=== PATIENT | female | born 1935 | race Caucasian/White ===

== ENCOUNTER 2022-08-28 10:37 | Outpatient (REF) | payer MEDICARE, SELFPAY ==
[2022-08-28 11:06] LABS: MANUAL DIFF FLAG NO
[2022-08-28 11:44] LABS: Basophils Percent Auto 0.8 % (0-2); Eosinophils Absolute Auto 0.1 X10*3/uL (0.0-0.4); Eosinophils Percent Auto 2.5 % (0-4); Hematocrit 40.7 % (37.0-47.0); Hemoglobin 13.7 g/dl (12.0-16.0); Imm Gran Abs Auto 0.01 X10*3/uL (0.00-0.03); Imm Gran Pct Auto 0.2 % (0.0-0.4); Lymphocytes Absolute Auto 0.9 X10*3/uL (1.2-4.9); Lymphocytes Percent Auto 17.9 % (20-40); Mean Corpuscular HGB Conc 33.7 g/dl (31.0-35.0); Mean Corpuscular Hemoglobin 30.6 pg (27.0-33.0); Mean Corpuscular Volume 91.1 fL (80.0-98.0); Mean Platelet Volume 10.1 fL (9.4-12.3); Monocytes Absolute Auto 0.5 X10*3/uL (0.1-1.2); Monocytes Percent Auto 9.8 % (2-11); Neutrophils Absolute Auto 3.6 x10*3/uL (2.0-8.3); Neutrophils Percent Auto 68.8 % (45-73); Platelet Count 221 X10*3/uL (160-400); Red Blood Count 4.47 X10*6/uL (4.20-5.50); Red Cell Distribution Width 13.3 % (11.0-16.0); White Blood Count 5.2 X10*3/uL (4.8-10.8)
[2022-08-28 13:04] LABS: Alanine Aminotransferase 14 U/L (0-31); Albumin Level 4.2 g/dL (3.5-5.0); Alkaline Phosphatase 64 U/L (39-117); Anion Gap 10 (12-20); Aspartate Amino Transferase 18 U/L (5-31); Bilirubin Total 0.9 mg/dL (0.0-1.0); Blood Urea Nitrogen 9 mg/dL (9-16); Calcium 9.6 mg/dL (8.4-10.2); Carbon Dioxide 29 mmol/L (22-29); Chloride 102 mmol/L (96-108); Cholesterol 217 mg/dL; Estimated Glomerular Filt Rate > 60; Glucose Fasting 97 mg/dL (60-99); HDL Cholesterol 93 mg/dL; LDL Cholesterol Calculated 115 mg/dl; Potassium 4.8 mmol/L (3.3-5.1); Sodium 136 mmol/L (135-145); Total Protein 6.8 g/dL (6.5-8.0); Triglycerides 46 mg/dL
[2022-08-28 13:29] LABS: Vitamin D 25-OH Total 23.5 ng/mL (>30)
== END 2022-08-28 10:38 | disposition home or self-care (01) ==
LOC: HO.LAB 10:37
PROVIDERS: PCP Internal Medicine; Visit Provider Internal Medicine
DX: M81.0 Age-related osteoporosis without current pathological fracture (principal); E78.00 Pure hypercholesterolemia, unspecified; I11.0 Hypertensive heart disease with heart failure; I50.9 Heart failure, unspecified
CPT/HCPCS: 36415; 80053; 80061; 82306; 85025

== ENCOUNTER 2022-09-14 12:21 | Outpatient (REF) | payer MEDICARE, SELFPAY ==
[2022-09-14 14:02] LABS: B Type Natriuretic Peptide 44 pg/mL (<100)
[2022-09-14 14:21] LABS: Anion Gap 15 (12-20); Blood Urea Nitrogen 11 mg/dL (9-16); Calcium 9.7 mg/dL (8.4-10.2); Carbon Dioxide 26 mmol/L (22-29); Chloride 99 mmol/L (96-108); Estimated Glomerular Filt Rate > 60; Glucose Random 86 mg/dL (60-115); Potassium 4.7 mmol/L (3.3-5.1); Sodium 135 mmol/L (135-145)
== END 2022-09-14 12:22 | disposition home or self-care (01) ==
LOC: HO.LAB 12:21
PROVIDERS: PCP Internal Medicine; Visit Provider Internal Medicine Cardiovascular Disease
DX: I10 Essential (primary) hypertension (principal)
CPT/HCPCS: 36415; 80048; 83880

== ENCOUNTER 2023-10-01 15:31 | Outpatient (REF) | payer MEDICARE, SELFPAY ==
[2023-10-01 15:52] LABS: MANUAL DIFF FLAG NO
[2023-10-01 17:10] LABS: Basophils Absolute Auto 0.1 X10*3/uL (0.0-0.2); Basophils Percent Auto 0.9 % (0-2); Eosinophils Absolute Auto 0.1 X10*3/uL (0.0-0.4); Eosinophils Percent Auto 1.6 % (0-4); Hemoglobin 13.1 g/dl (12.0-16.0); Imm Gran Abs Auto 0.02 X10*3/uL (0.00-0.03); Imm Gran Pct Auto 0.4 % (0.0-0.4); Lymphocytes Absolute Auto 1.1 X10*3/uL (1.2-4.9); Lymphocytes Percent Auto 20.2 % (20-40); Mean Corpuscular HGB Conc 33.6 g/dl (31.0-35.0); Mean Corpuscular Volume 92.4 fL (80.0-98.0); Monocytes Absolute Auto 0.5 X10*3/uL (0.1-1.2); Monocytes Percent Auto 9.6 % (2-11); Neutrophils Absolute Auto 3.7 x10*3/uL (2.0-8.3); Neutrophils Percent Auto 67.3 % (45-73); Platelet Count 209 X10*3/uL (160-400); Red Blood Count 4.22 X10*6/uL (4.20-5.50); Red Cell Distribution Width 13.4 % (11.0-16.0); White Blood Count 5.5 X10*3/uL (4.8-10.8)
[2023-10-01 17:30] LABS: Alanine Aminotransferase 14 U/L (0-31); Albumin Level 3.9 g/dL (3.5-5.0); Alkaline Phosphatase 59 U/L (39-117); Anion Gap 13 (12-20); Aspartate Amino Transferase 17 U/L (5-31); Bilirubin Total 0.5 mg/dL (0.0-1.0); Blood Urea Nitrogen 13 mg/dL (9-16); Calcium 9.4 mg/dL (8.4-10.2); Carbon Dioxide 28 mmol/L (22-29); Chloride 100 mmol/L (96-108); Estimated Glomerular Filt Rate > 60; Glucose Random 82 mg/dL (60-115); Potassium 4.3 mmol/L (3.3-5.1); Sodium 137 mmol/L (135-145); Total Protein 6.5 g/dL (6.5-8.0)
== END 2023-10-01 15:32 | disposition home or self-care (01) ==
LOC: HO.LAB 15:31
PROVIDERS: PCP Internal Medicine; Visit Provider Internal Medicine
DX: I11.0 Hypertensive heart disease with heart failure (principal); I50.9 Heart failure, unspecified; K21.9 Gastro-esophageal reflux disease without esophagitis
CPT/HCPCS: 36415; 80053; 85025

== ENCOUNTER 2023-10-25 11:21 | Outpatient (REF) | payer SELFPAY ==
--- NOTE | 2023-10-25 12:30 | MHC.AU.HA3 ---
Hearing Instrument Follow-Up- Binaural Date of Visit: 10/25/23 Right Ear: Make, Model, Color, Serial Number: Oticon More 2 miniRITE R, chroma beige, [id number] Radiography Technician Repair Warranty: 11/18/25 Radiography Technician Loss and Damage Warranty: 11/18/25 [facility] Service Plan: N/A Battery Size: Rechargeable Jewelry Sales Representative/Slim Tube: Earmold/Dome/CShell/SlimTip:6mm dbl benitez Type of Wax Guard: minifit prowax Dispensed By: [employer] that is closed now Date of Fitting: unknown Left Ear: Make, Model, Color, Serial Number: Oticon More 2 R chroma beige, [id number] Radiography Technician Repair Warranty: 11/18/25 Radiography Technician Loss and Damage Warranty: 11/18/25 [facility] Service Plan: n/a Battery Size: Rechargeable Jewelry Sales Representative/Slim Tube: Earmold/Dome/CShell/SlimTip: 6mm dbl benitez Type of Wax Guard: minifit prowax Dispensed By: [employer] that is closed now Date of Fitting: unknown Follow-Up Summary: Here for first time. Reports getting hearing aids about a year ago. Reports the place she got them has closed. Here today because the right aid is not working. She is not sure if it is the aid or a problem with wax in her ear. Checked aids, both have a lot of wax build up, right wax guard totally clogged. Listening check positive after cleaning. Pt reports improvement. Otoscopy WNL Au. Read out RENE settings so we will have them here if needed in the future. Recommended updated eval as pt reports it has likely been over a year. Recommendations: Recommendations: Hearing instrument maintenance in 6 months, or sooner if needed. Recommendations (Other): Hearing evaluation. Diagnosis Code(s): Primary Diagnosis: H90.3 Bilateral Sensorineural Hearing Loss Signature: Provider: Tadeo Arvizu, [facility]
== END 2023-10-25 11:22 | disposition home or self-care (01) ==
LOC: HO.HAP 11:21
PROVIDERS: Visit Provider Internal Medicine
DX: Z46.1 Encounter for fitting and adjustment of hearing aid (principal); H90.3 Sensorineural hearing loss, bilateral
CPT/HCPCS: 92593

== ENCOUNTER 2024-01-22 10:46 | Outpatient (REF) | payer MEDICARE, SELFPAY ==
[2024-01-22 13:57] LABS: Appearance Urine Clear; Color Urine Yellow; Glucose Urine UA Negative (Negative); Leukocyte Esterase Urine Small (1+) (Negative); Nitrite Urine Negative (Negative); PH 6.5 (5.0-9.0); UMIC TRIGGER UACC YES; Urine Blood Trace (Negative); Urine Ketones Negative (Negative); Urine Protein Negative (Neg-Trace)
[2024-01-22 14:07] LABS: Bacteria Urine None Seen (None Seen); Hyaline Casts Urine 0-2 /LPF (0-2); RBC Urine 0-2 /HPF (0-2); Squamous Epithelial Cell Urine 0-2 /HPF (0-2); UACC Culture Trigger YES; WBC Urine 0-5 /HPF (0-5)
== END 2024-01-22 10:47 | disposition home or self-care (01) ==
LOC: HO.LAB 10:46
PROVIDERS: PCP Internal Medicine; Visit Provider Internal Medicine
DX: R30.0 Dysuria (principal)
CPT/HCPCS: 81001; 87086

== ENCOUNTER 2024-12-07 11:13 | Outpatient (REF) | payer MEDICARE, SELFPAY ==
--- OUTSIDE RECORDS SUMMARY | 2024-12-07 15:37 | XMS_ITS | Continuity of Care Document ---
Author Organization [facility] Address [address] [place] [address] Phone Care Team Providers Care Loom Blower Name Role Phone Juan A Morrow MD [...] on Encounter Office/outpa tient visit,est, mod [facility], [address], [place], [address], [place] tel:[phone] [facility] Other low back painSpinal stenosis, lumbar region with neurogenic claudication Sep-1 2 Odalys Velazco. [address], [address], [facility] [place], [address] , [place]. tel:[phone] Referring Provider: Juan A Sepulveda, [address] [facility] A, [place], [address] . tel:[phone] [facility], [address] [place], [address], [place] tel:[phone] [address] [place] [address] [facility] [place] No Information Mar- 2 Odalys Velazco. [address], [facility] A, [place], [address] , [place]. tel:[phone] Referring Provider: Juan A Sepulveda, [place], [address] . tel:[phone] Office[place] visit,est, [facility] [place] [facility], [address], [place], [address], [place] tel:[phone] [facility] Spinal stenosis, lumbar region with neurogenic claudicationOt her low back pain 2 Odalys Velazco. [address], [address], [place], [address] , [place]. tel:[phone] Referring Provider: Juan A Sepulveda, [address], [place], [address] . tel:[phone] Office/outpa tient visit,est, mod [facility], [address], [place], [address], tel:[phone] [address] [place] [address] Spinal stenosis, lumbar region with neurogenic claudication 1 Odalys Velazco. [address], [address], [place], [address] , [place]. tel:[phone] Referring Provider: Juan A Sepulveda, [address], [place], [address] . tel:[phone] [facility], [address], [place], [address], tel:[phone] [facility] No Information 1 Odalys Velazco. [address], [address], [place], [address] , [place]. tel:[phone] Referring Provider: Juan A Sepulveda, [address], [place], [address] . tel:[phone] Office/outpa [place]ient visit,est, [facility] [place] [facility], [address], [place], [address], [place] tel:[phone] [facility], [facility] Spinal stenosis, lumbar region with neurogenic claudication 1 Odalys Velazco. [address], [address], [place], [address] , [place]. tel:[phone] Referring Provider: Juan A Sepulveda, [address], [place], [address] . tel:[phone] Office/outpa tient visit,[facility], [facility] [place] [facility], [address], [place], [address], [place] tel:[phone] 700 [facility] left wrist pain (chief complaint) Carpal tunnel syndrome, left upper limb 0 Toy Bateman. [address] [facility], [facility] 100, [place], [place], [address] , [place]. tel:[phone] Referring Provider: Juan A Sepulveda, [facility] [address], [facility] [place], [address] . tel:[phone] Office/outpa tient visit,est, mod [facility], [facility] [address] [facility], [place], [address], [place] tel:[phone] 700 [facility] No Information Jan-0 0 Odalys Velazco. [address] [facility], [facility] A, [place], [place], [address] , [place]. tel:[phone] [facility], [facility] [place], [address], [place] tel:[phone] [facility] No Information Jan-0 0 Odalys Velazco. [address] [facility], [facility] A, [place], [place], [address] , [place]. tel:[phone] Referring Provider: Scar Parra, [address] [place], [address]. tel:[phone] Office/outpa tient visit,est, mod [facility], [facility] [place], [address], [place] [phone] 700 [facility], [facility] No Information 0 Odalys Velazco. [address], [facility] A, [place], [address] , [place]. [phone] [facility], [facility] [place], [address], [place] tel:[phone] 700 [facility] No Information 9 Odalys Velazco. [address] [facility] A, [place], [place], [address] , [place]. tel:[phone] [facility], [address], [place], [address], [place] tel:[phone] 700 [facility] No Information 9 Odalys Velazco. [address], [address], [place], [place], [address] , [place]. tel:[phone] Office/outpa tient visit,[facility], [address] [place], [address], [place] tel:[phone] [facility] No Information 9 Aida Abbott. [address] [place], [address]. tel: [phone] [facility], [address] [place], [address], [place] [phone] [address] [facility] No Information 9 Aida Abbott. [address] [place], [address]. tel: [phone] Referring Provider: Scar Parra, [address] [place], [address]. tel:[phone] Office/outpa tient visit,[facility], [address] [place], [address], [place] [phone] 700 [facility] No Information 9 Aida Abbott. [address] [place], [address]. tel: [phone] Family History Family Member Type Diagnosis Age At Onset No Information Payers Payer name Insurance type Covered democrat ID Authorsrikantha russel(s) Medicare [place] MB [id number] [facility] Supplemental CI [id number] Social History Type Description Quantity Date Captured Comments Alcohol Use Details Unknown Caffeine Use Details Unknown Tobacco Use Status No Information Smoking Status No Information Sex Female Gender Identity Female Chief Complaint And Reason For Visit No Information Reason For Referral Reason For Referral No Information Plan Of Treatment Date Type Action Status Future Order: Radiology Order MR I Lumbar Spine WO Contrast ([id number]), Collected on: , Sent on: Sent History [...]
[2024-12-07 17:16] LABS: Urine Cytology See Pathology rpt
== END 2024-12-07 11:14 | disposition home or self-care (01) ==
LOC: HO.LAB 11:13
PROVIDERS: PCP Internal Medicine; Visit Provider Urology
DX: N39.0 Urinary tract infection, site not specified (principal)
CPT/HCPCS: 51798; 81003; 88112

== ENCOUNTER 2024-12-07 11:13 | Outpatient (AMB) | payer MEDICARE, SELFPAY ==
--- NOTE | 2024-12-07 11:16 | MHC.OFFVIS ---
Intake Visit Reasons: Nocturia Intake Note: New patient presents today for initial visit for nocturia Urology Medication:none Blood Thinner:none Antibiotic Allergies:none PVR:91ml Allergies No Known Allergies Allergy (Verified 12/07/24 11:22) Medication List - Last Reconciled 12/07/24 by Gilberto Black MD atorvastatin 40 mg PO DAILY nitrofurantoin monohyd/m-cryst 100 mg (Macrobid) 100 mg PO Q12H 7 days valsartan 320 mg PO DAILY HPI Comments Details: Jeanna is an 89-year-old female who is here as a new patient evaluation for urinary frequency getting up at nighttime to urinate she is unable to provide a urine specimen bladder scan PVR is 91 mL History of Present Illness The patient is an 89-year-old female presenting with urinary frequency and nocturia. These symptoms have developed over the past three to four months, with the patient experiencing a need to void every two hours during the day and three to four times at night. She denies any accompanying pain or hematuria and has noted these changes as recent and progressively bothersome. Although she missed a prior appointment due to a family emergency, she has been able to manage the symptoms partially. Urinary Symptoms Review - Increased urinary frequency during daytime, approximately every two hours. - Nocturia present, waking three to four times at night. - Onset of symptoms approximately three to four months ago. - Denies dysuria. - No reports of hematuria. - No prior kidney stones or urinary tract surgeries. - No current incontinence or pain reported. Results - Tests and diagnostics: Post Voiding Residual bladder scan showing 91 mL. Discussion Notes During the visit, I discussed with the patient the symptoms of increased urinary frequency and nocturia. We reviewed the necessity of ruling out a possible urinary tract infection or other causes of her symptoms. I recommended a diagnostic ultrasound to evaluate her kidneys and bladder further. The conversation included discussing the importance of having a full bladder for the ultrasound and arranging for the test at the hospital Radiology department. If no infections or abnormalities are identified, I mentioned that medications might help manage her symptoms. We plan to set up a follow-up call to discuss the ultrasound results and potential treatment options. Alternative arrangements for specimen submission were discussed to ensure patient convenience. Plan We plan to collect a urine specimen later in the week to exclude any urinary tract infection as a cause of the patient's symptoms. An ultrasound of the kidneys and bladder is scheduled to evaluate for possible structural abnormalities contributing to her complaints. The patient is advised to come to the hospital Radiology department with a full bladder for this imaging study. Should the ultrasound results prove unremarkable, exploring medication to aid urinary symptoms might be the next course of action. We will reconvene via a telephone follow-up to discuss findings and establish further management strategies as needed. Review of Systems Const All systems reviewed & are unremarkable except as noted in HPI and below Reports no additional complaints Eyes Reports no additional complaints ENT Reports no additional complaints Card Reports no additional complaints Resp Reports no additional complaints GI Reports no additional complaints Reports as per HPI Musc Reports no additional complaints Skin/Breast Reports system reviewed and no additional complaints, except as documented Neuro Reports no additional complaints Psych Reports no additional complaints Endo Reports no additional complaints Boris/Lymph Reports no additional complaints Aller/Immun Reports no additional complaints Office Procedures Post Void Residual Post Residual Void Post Void Residual (PVR): 91 [id number] Void Residual by ultrasound Results AMB Urinalysis, Automated UA Leukoctes 0 Nura/uL Last Edit by Anusha Fuentes on 12/07/24 13:54 UA Nitrite Positive Last Edit by Anusha Fuentes on 12/07/24 13:54 UA Urobilinogen 0.2 mg/dL Last Edit by Anusha Fuentes on 12/07/24 13:54 UA Protein 15 mg/dL Last Edit by Anusha Fuentes on 12/07/24 13:54 UA pH 6.0 Last Edit by Anusha Fuentes on 12/07/24 13:54 UA Blood 200 Reymundo/uL Last Edit by Anusha Fuentes on 12/07/24 13:54 UA Specific [place] 1.015 Last Edit by Anusha Fuentes on 12/07/24 13:54 UA Ketone Negative Last Edit by Anusha Fuentes on 12/07/24 13:54 UA Bilirubin 0 mg/dL Last Edit by Anusha Fuentes on 12/07/24 13:54 UA Glucose 0 mg/dL Last Edit by Anusha Fuentes on 12/07/24 13:54 Results Reviewed Results Reviewed: Laboratory Last Values Urine pH (Auto) 6.0 12/07/24 13:03 Specific [place] (Auto) 1.015 12/07/24 13:03 Urine Protein (Auto) 15 mg/dL 12/07/24 13:03 Glucose (UA)(Auto) 0 mg/dL 12/07/24 13:03 Urine Ketones (Auto) Negative 12/07/24 13:03 Urine Blood (Auto) 200 Reymundo/uL 12/07/24 13:03 Urine Nitrite (Auto) Positive 12/07/24 13:03 Urine Bilirubin (Auto) 0 mg/dL 12/07/24 13:03 Urine Urobilinogen (Auto) 0.2 mg/dL 12/07/24 13:03 Leukocyte Esterase (Auto) 0 Nura/uL 12/07/24 13:03 Assessment & Plan Assessment & Plan Plan renal/Bladder US consider anticholinergic meds Orders: Orders AMB Urinalysis Automated Today Z13.9 - Encounter for screening, unspecified Urine Cytology Today N39.0 - Urinary tract infection, site not specified AMB Post Void Residual by ultrasound Today N39.0 - Urinary tract infection, site not specified Medications: New nitrofurantoin monohyd/m-cryst 100 mg (Macrobid) must administer with a meal/food 100 mg PO Q12H 14 caps 0RF 7 days Discontinued nitrofurantoin macrocrystal must administer with a meal/food Discontinued Reason: Patient Completed Course 100 mg PO BID 7 days 14 caps 0RF N39.0 - Urinary tract infection, site not specified Patient Instructions: The patient had an opportunity to ask questions regarding treatment plan. The patient expressed understanding and agreement with the above treatment plan. The patient is aware they should contact our office by phone for worsening of their current condition or the appearance of new symptoms. Compliance is encouraged with any medications and followup testing that is ordered. It is a privilege to be allowed the opportunity to participate in the urologic care of your patient. If you have any questions or concerns regarding treatment for the above conditions please do not hesitate to contact me. The office telephone contact is [phone]. This note is constructed in part using voice recognition software. While every effort has been made to ensure accuracy machine heel seat fitter errors may have been included. Yours sincerely, Gilberto Black MD Scribe Plan - Not visible on output: Patient was informed and verbally consented to the use of an ambient scribe for clinic note documentation during this visit. Coding Level of Care Code New Pt Level 4 (26397) CPT Codes Post Residual Void - PVR CPT Code: 92662-Macd Void Residual by ultrasound ([id number])
--- OUTSIDE RECORDS SUMMARY | 2024-12-07 13:14 | XMS_ITS | Patient Health Record ---
Author Organization [facility] Address [address] [place], [place] [id number] Care Team Providers Care Survey Technician Name Role Phone gali, joan Primary Care Provider Giuliana Barragan Unavailable [phone] Reason For Referral No Information Medications Medication SIG (Take, Route, Frequency, Duration) Notes Start Date End Date Status Cyclobenzaprine HCl 10 MG TAKE ONE TABLE T BY MOUTH EVERY NIGHT AT BEDTIME for 90 Active Multivitamins as directed Orally qd Active Calcium + D 600-200 MG-UNIT 1 tablet wit h food Orally QOD Active NIFEdipine ER 30 MG 1/2 tablet Orally On ce a day Active Irbesartan 150 MG 2 tablets Oral at bedtime Active Spironolactone 25 MG Oral for 90 Active Prolia 60 MG/ML as directed Subcutaneous 6 Active Atorvastatin Calcium 40 MG 1 tablet Oral ly Once a day for 30 day(s) Active Carvedilol 12.5 MG 1 tablet with food Orally Twice a day Active Stool Softener 100 MG 1 capsule as neede d Orally Once a day for 30 day(s) Active Aspir-81 81 MG 1 tablet Orally ever y other day Active Lasix 20 MG 1 tablet Orally Once a day PRN Active MiraLax - 1 packet mixed with 8 ounces of fluid Orally Once a day Active PriLOSEC 20 MG 1 capsule Orally Onc e a day for 30 day(s) Active Immunizations Vaccine Route Administration Date Status Comme nts Flucelvax Unknown 06/11/2017 Administered Influenza Unknown 06/13/2015 Administered Pneumococcal Unknown 06/13/2015 Administered Pneumococcal IM Intramuscular 06/24/2017 Administered prevnar 13 Unknown 06/12/2015 Administered Social History Tobacco Use: Social History Observation Description Date Details (start date - stop date) Never Smoker NA - NA Alcohol Screen Question Answer Notes Did you have a drink contain ing alcohol in the past year? Yes How often did you have a dri nk containing alcohol in the past year? 4 or more times a week (4 points) How many drinks did you have on a typical day when you were drinking in the past year? 1 or 2 drinks (0 point) Points 4 Interpretation Positive Smoking: Question Answer Notes Are you a: nonsmoker Section Notes: 1 glass of wine at dinner ev erynight 1 glass of wine at dinner ev erynight 1 glass of wine at dinner ev erynight 1 glass of wine at dinner ev erynight 1 glass of wine at dinner ev erynight 1 glass of wine at dinner ev erynight 1 glass of wine at dinner ev erynight 1 glass of wine at dinner ev erynight 1 glass of wine at dinner ev erynight 1 glass of wine at dinner ev erynight Problems Problem Type SNOMED Code ICD Code Onset Dates Problem Status W/U Status Risk Notes Problem Low back pain (893315554) Low back pain (M54.5) Active confirmed Problem Age-related osteoporosis (176554349) Age-related osteoporosis without current pathological fracture (M81.0) Active confirmed Pt to skyler nue calcium and vitamin D supplementation along with weight bearing exercises as tolerated. Will continue Prolia as well. Problem Fibromyalgia (473925503) Fibromyalgia (M79.7) Active confirmed Continue pharmacological and non pharmacological measures. 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 Problem Skin sensation disturbance (25027079) Left hand paresthesia (R20.2) Active confirmed pt to wear brac e as needed, much improved Plan Of Treatment Pending Test Test Name Order Date DEXA-axial 03/18/2014 DEXA-axial 04/08/2015 Calcium, Serum 01/19/2022 CALCIUM 07/30/2022 CALCIUM 06/21/2021 CALCIUM 02/07/2022 CREATININE 02/07/2022 CREATININE 01/19/2022 CREATININE 07/30/2022 MAGNESIUM 01/19/2022 MAGNESIUM 07/30/2022 MAGNESIUM 02/07/2022 PHOSPHOROUS 02/07/2022 PHOSPHOROUS 07/30/2022 PHOSPHOROUS 01/19/2022 VITAMIN D 25 [place] 01/19/2022 VITAMIN D 25 [place] 02/07/2022 Future Test Test Name Order Date INTACT PTH AND CALCIUM 09/15/2015 COMPREHENSIVE METABOLIC PANEL 10/30/2016 VITAMIN D, 25-HYDROXY - SCREEN 7 COMPREHENSIVE METABOLIC PANEL 05/03/2017 VITAMIN D, 25-HYDROXY - FRACTIONATED 03/2017 COMPREHENSIVE METABOLIC PANEL 11/14/2017 VITAMIN D, 25-HYDROXY - FRACTIONATED Calcium, Serum 05/27/2018 PHOSPHORUS, INORGANIC, SERUM 05/27/2018 MAGNESIUM 05/27/2018 CREATININE 05/27/2018 Calcium, Serum 12/16/2018 PHOSPHORUS, INORGANIC, SERUM 12/16/2018 MAGNESIUM 12/16/2018 CREATININE 12/16/2018 PHOSPHORUS, INORGANIC, SERUM 06/29/2019 CALCIUM 06/29/2019 CREATININE 06/29/2019 MAGNESIUM 06/29/2019 CREATININE 12/17/2019 CALCIUM 12/17/2019 MAGNESIUM 12/17/2019 Calcium, Serum 06/09/2020 Calcium, Serum 01/06/2021 Calcium, Serum 06/21/2021 CREATININE 06/21/2021 MAGNESIUM 06/21/2021 PHOSPHOROUS 06/21/2021 Insurance Providers Payer Name Payer Address Payer Phone Subscriber Number Group Number Insured Name Patient Relationship to Insured Coverage Start Date Coverage End Date [place] [address] [place] [place] [address] [id number] Jeanna Suresh Self - patient is the insured [facility] Supplement [address] [place], [place] [id number] Jeanna Suresh Self - patient is the insured Medications Administered Medication Instructions Date of Administration Dosage Notes Prolia 10/13/2015 60 mg Prolia 05/07/2016 60 mg Prolia 11/06/2016 60 mg Prolia 07/02/2019 60 mg Prolia 01/01/2020 60 mL Prolia 01/16/2021 60 mg Prolia 08/10/2021 60 mg Prolia 02/14/2022 60 mg Prolia 05/30/2017 60 mg Prolia 12/03/2017 60 mg Prolia 06/25/2018 60 mL Prolia 12/25/2018 60 mg Prolia 07/05/2020 60 mg Medical (General) History Medical History History ICD Code Osteoporosis Oseoarthritis Fibromylagia History of depression History of phlebitis CHF dx.2014 Surgical History Surgery Date(Month/Year) Tubal ligation Vericose vein stripping
--- OUTSIDE RECORDS SUMMARY | 2024-12-07 13:14 | XMS_ITS | Continuity of Care Document ---
Author Organization [facility] Address [address] [place] [address] Phone Care Team Providers Care Warp Doffer Name Role Phone Juan A Morrow MD Unavailable Unavailable Allergies, Adverse Reactions, Alerts Substance Reaction Status Criticality No Known Allergies Active No Inform ation Medications Medication Instructions Dosage Effective Dates (start - stop) Status Comments Prilosec OTC 20 mg tablet,delayed release - Active furosemide 20 mg tablet take 1 tablet by oral route every day 20 MG - Active diphenhydramine 25 mg capsule take 2 capsule by oral route every 4 - 6 hours as needed 50 MG - Active cyclobenzaprine 5 mg tablet take 1 tablet by oral route 8 times every day 5 MG - Active carvedilol 25 mg tablet take 1 tablet by oral route 2 times every day with food 25 MG - Active Calcium 500 + D 500 mg (1,250 mg)-200 unit tablet - Active aspirin 81 mg tablet,delayed release take 1 tablet by oral route every day 81 MG - Active acetaminophen 325 mg capsule - Active Procedures Procedure Date Office/outpatient visit,est, mod 2021 Inject foramin, lumb/sacral, single Office/outpatient visit,est, mod 2021 Office/outpatient visit,est, mod 2020 Inject foramin, lumb/sacral, single Office/outpatient visit,est, mod 2020 Office/outpatient visit,new, mod 2019 Office/outpatient visit,est, mod 2019 US XTR NON-VASC LMTD Wrist cock-up non-molded Office/outpatient visit,est, mod 2019 DRAIN/INJ JOINT/BURSA W/US Dexamethasone sodium phos X-RAY EXAM HIP UNI 4/> VIEWS Inject foramin, lumb/sacral, single Inject foramin, lumb/sacral, single Office/outpatient visit,est, mod 2018 MRI Lumbar Spine wo Contrast Office/outpatient visit,new, mod 2018 X-ray exam lwr spine, min 4 views X-RAY EXAM HIP UNI 2-3 VIEWS Advance Directives Directive Yes / No Effective Date File Name No Information Encounters Encounter Description Practice Location Reason(s) For Visit Diagnoses Date Provider Providers Copied on Encounter Office/outpa tient visit,est, mod [facility], [address], [place], [address], [place] tel:[phone] [facility] Other low back painSpinal stenosis, lumbar region with neurogenic claudication Sep-1 2 Odalys Velazco. [address], [facility] [place] [place], [address] , [place]. tel:[phone] Referring Provider: Juan A Sepulveda, [address] [facility] A, [place], [address] . tel:[phone] [facility], [address] [place], [address], [place] tel:[phone] [address] [place] [address] Surgical [place] No Information Mar- 2 Odalys Velazco. [address], [facility] A, [place], [address] , [place]. tel:[phone] Referring Provider: Juan A Sepulveda, [place], [address] . tel:[phone] Office/outpa tient visit,est, [facility], [address], [place], [address], [place] tel:[phone] [facility] Spinal stenosis, lumbar region with neurogenic claudicationOt her low back pain 2 Odalys Velazco. [address], [address], [place], [address] , [place]. tel:[phone] Referring Provider: Juan A Sepulveda, [address], [place], [address] . tel:[phone] Office/outpa tient visit,est, mod [facility], [address], [place], [address], tel:[phone] [address] [place] [address] Spinal stenosis, lumbar region with neurogenic claudication 1 Odalys Velazco. [address], [address], [place], [address] , [place]. tel:[phone] Referring Provider: Juan A Sepulveda, [address], [place], [address] . tel:[phone] [facility], [address], [place], [address], tel:[phone] [facility] No Information 1 Odalys Velazco. [address], [address], [place], [address] , [place]. tel:[phone] Referring Provider: Juan A Sepulveda, [address], [place], [address] . tel:[phone] Office/outpa tient visit,est, [facility], [address], [place], [address], [place] tel:[phone] Spinal stenosis, lumbar region with neurogenic claudication 1 Odalys Velazco. [address], [place], [address] , [place]. tel:[phone] Referring Provider: Juan A Sepulveda, [address], [place], [address] . tel:[phone] Office/outpa tient visit,[facility], [facility], [address], [place], [address], [place] tel:[phone] 700 [facility] left wrist pain (chief complaint) Carpal tunnel syndrome, left upper limb 0 Toy Bateman. [address] [facility], [facility] [address], [place], [place], [address] , [place]. tel:[phone] Referring Provider: Juan A Sepulveda, [facility] [address], [facility] [place], [address] . tel:[phone] Office/outpa tient visit,est, mod [facility], [facility] [address] [facility], [place], [address], [place] tel:[phone] 700 [facility] No Information Jan-0 0 Odalys Velazco. [address] [facility], [facility] A, [place], [place], [address] , [place]. tel:[phone] [facility], [facility] [place], [address], [place] tel:[phone] [facility] No Information Jan-0 0 Odalys Velazco. [address] [facility], [facility] A, [place], [place], [address] , [place]. tel:[phone] Referring Provider: Scar Parra, [address] [place], [address]. tel:[phone] Office/outpa tient visit,est, mod [facility], [facility] [place], [address], [place] [phone] No Information 0 Odalys Velazco. [address], [facility] A, [place], [place], [id number] , [place]. [phone] [facility], [facility] [place], [address], [place] tel:[phone] 700 [facility] No Information 9 Odalys Velazco. [address] [facility] [address], [place], [place], [address] , [place]. tel:[phone] [facility], [address], [place], [address], [place] tel:[phone] 700 [facility] No Information 9 Odalys Velazco. [address], [place], [place], [address] , [place]. tel:[phone] [facility]pa [facility]ient [facility], [address] [place], [address], [place] tel:[phone] [facility] No Information 9 Aida Abbott. [address] [place], [address]. tel: [phone] [facility], [address] [place], [address], [place] [phone] 700 [facility] No Information 9 Aida Abbott. [address] [place], [address]. tel: [phone] Referring Provider: Scar Parra, [address] [place], [address]. tel:[phone] Office/outpa tient visit,[facility], [address] [place], [address], [place] [phone] 700 [facility] No Information 9 Aida Abbott. [address] [place], [address]. tel: [phone] Family History Family Member Type Diagnosis Age At Onset No Information Payers Payer name Insurance type Covered democrat ID Authorsrikantha russel(s) Medicare [place] [id number] [facility] Supplemental [place] [id number] Social History Type Description Quantity Date Captured Comments Alcohol Use Details Unknown Caffeine Use Details Unknown Tobacco Use Status No Information Smoking Status No Information Sex Female Gender Identity Female Chief Complaint And Reason For Visit No Information Reason For Referral Reason For Referral No Information Plan Of Treatment Date Type Action Status Future Order: Radiology Order MR I Lumbar Spine WO Contrast ([id number]), Collected on: , Sent on: Sent History Of Present Illness Encounter Date Complaint History Of Prese nt Illness left wrist pain She presents wit h pain, weakness and swelling on the left side. Functional Status Date Functional Assessmen t No Information Instructions Date Instruction Additional Infor mation No Information Assessments Type Assessment Date No Information Patient Care Teams Name Effective Dates (start - stop) Status Members No Information
== END 2024-12-07 12:04 | disposition home or self-care (01) ==
PROVIDERS: PCP Internal Medicine; Visit Provider Urology
DX: Z13.9 Encounter for screening, unspecified (principal)

== ENCOUNTER 2024-12-31 11:33 | Outpatient (REF) | payer MEDICARE, SELFPAY ==
[2024-12-31 12:27] LABS: Appearance Urine Cloudy; Color Urine Yellow; Glucose Urine UA Negative (Negative); PH 6.5 (5.0-9.0); Specific Gravity - Urine 1.015 (1.005-1.025); Urine Blood Moderate (2+) (Negative); Urine Ketones Negative (Negative); Urine Protein Negative (Neg-Trace)
[2024-12-31 12:28] LABS: Leukocyte Esterase Urine Large (3+) (Negative); Nitrite Urine Positive (Negative); UMIC TRIGGER UA YES
[2024-12-31 12:33] LABS: Bacteria Urine 4+ (None Seen); Hyaline Casts Urine 0-2 /LPF (0-2); WBC Urine >50 /HPF (0-5)
--- OUTSIDE RECORDS SUMMARY | 2024-12-31 13:05 | XMS_ITS | Continuity of Care Document ---
Author Organization [facility] Address [address] [place] [address] Phone Care Team Providers Care Financial Analyst Accountant Name Role Phone Juan A Morrow MD [...] on Encounter Office/outpa tient visit,est, mod [facility], [address], [place], [address], [place] tel:[phone] [facility] Other low back painSpinal stenosis, lumbar region with neurogenic claudication Sep-1 2 Odalys Velazco. [address], [address], [facility] [place], [address] , [place]. tel:[phone] Referring Provider: Juan A Sepulveda, [address] [facility] A, [place], [address] . tel:[phone] [facility], [address] [place], [address], [place] tel:[phone] [address] [place] [address] Surgical [place] No Information Mar- 2 Odalys Velazco. [address], [facility] A, [place], [address] , [place]. tel:[phone] Referring Provider: Juan A Sepulveda, [place], [address] . tel:[phone] Office/outpa tient visit,est, [facility], [address], [place], [address], [place] tel:[phone] [facility] Spinal stenosis, lumbar region with neurogenic claudicationOt her low back pain 2 Odalys Velazco. [address], [address], [place], [address] , [place]. tel:[phone] Referring Provider: Juan A Sepulveda, [address], [place], [address] . tel:[phone] Office/outpa tient visit,est, mod [facility], [address], [place], [address], tel:[phone] [address] [place] [address] Spinal stenosis, lumbar region with neurogenic claudication 1 Odalys Velazco. [address], [address], [place], [address] , [place]. tel:[phone] Referring Provider: Juan A Sepulveda, [address], [place], [address] . tel:[phone] [facility], [address], [place], [address], tel:[phone] [facility] No Information 1 Odalys Velazco. [address], [address], [place], [address] , [place]. tel:[phone] Referring Provider: Juan A Sepulveda, [address], [place], [address] . tel:[phone] Office/outpa tient visit,est, [facility], [address], [place], [address], [place] tel:[phone] [facility] Spinal stenosis, lumbar region with neurogenic claudication 1 Odalys Velazco. [address], [address], [place], [address] , [place]. tel:[phone] Referring Provider: Juan A Sepulveda, [address], [place], [address] . tel:[phone] Office/outpa tient visit,[facility], [facility], [address], [place], [address], [place] tel:[phone] 700 [facility] left wrist pain (chief complaint) Carpal tunnel syndrome, left upper limb 0 Toy Bateman. [address] [facility], [facility] 100, [place], [place], [address] , [place]. tel:[phone] Referring Provider: Juan A Sepulveda, [facility] [address], [facility] [place], [address] . tel:[phone] Office/outpa tient visit,est, mod [facility], [facility] [address] [facility], [place], [address], [place] tel:[phone] 700 [facility] No Information Jan-0 0 Odalys Velazco. [address] [facility], [facility] A, [place], [place], [address] , [place]. tel:[phone] [facility], [facility], [address], [place] tel:[phone] [facility] No Information Jan-0 0 Odalys Velazco. [address] [facility], [facility] A, [place], [place], [address] , [place]. tel:[phone] Referring Provider: Scar Parra, [address] [place], [address]. tel:[phone] Office/outpa tient visit,est, mod [facility], [facility] [place], [address], [place] [phone] 700 [facility] No Information 0 Odalys Velazco. [address], [facility] A, [place], [place], [address] , [place]. [phone] [facility], [place], [address], [place] tel:[phone] 700 [facility] No Information 9 Odalys Velazco. [address] [facility] A, [place], [place], [address] , [place]. tel:[phone] [facility], [address], [place], [address], [place] tel:[phone] 700 [facility] No Information 9 Odalys Velazco. [address], [address], [place], [place], [address] , [place]. tel:[phone] Office/outpa tient visit,[facility], [address] [place], [address], [place] tel:[phone] [facility] No Information 9 Aida Abbott. [address] [place], [address]. tel: [phone] [facility], [address] [place], [address], [place] [phone] 700 [facility] No Information 9 Aida Abbott. [address] [place], [address]. tel: [phone] Referring Provider: Scar Parra, [address] [place], [address]. tel:[phone] Office/outpa tient visit,[facility], [address] [place], [address], [place] [phone] 700 [facility] No Information 9 Aida Abbott. [address] [place], [address]. tel: [phone] Family History Family Member Type Diagnosis Age At Onset No Information Payers Payer name Insurance type Covered libertarian ID Authorsrikantha russel(s) Medicare [place] MB [id number] [facility] Supplemental CI [id number] Social History Type Description Quantity Date Captured Comments Alcohol Use Details Unknown Caffeine Use Details Unknown Tobacco Use Status No Information Smoking Status No Information Sex Female Gender Identity Female Chief Complaint And Reason For Visit No Information Reason For Referral Reason For Referral No Information Plan Of Treatment Date Type Action Status Future Order: Radiology Order MR I Lumbar Spine WO Contrast ([id number]), Collected on: , Sent on: Sent History [...]
--- OUTSIDE RECORDS SUMMARY | 2024-12-31 13:05 | XMS_ITS | Patient Health Record ---
Author Organization [facility] Address [address] [facility] [address] [place], [place] [address] Care Team Providers Care Solar Energy Advisor Name Role Phone gali, joan Primary Care Provider Giuliana Barragan Unavailable [phone] Reason For Referral No Information Medications Medication [...] Status Risk Notes Problem Low back pain (030516091) Low back pain (M54.5) Active confirmed Problem Age-related osteoporosis (825742674) Age-related osteoporosis without current pathological fracture (M81.0) Active confirmed Pt to skyler nue calcium and vitamin D supplementation along with weight bearing exercises as tolerated. Will continue Prolia as well. Problem Fibromyalgia (288931774) Fibromyalgia (M79.7) Active confirmed Continue pharmacological and non pharmacological measures. 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
== END 2024-12-31 11:34 | disposition home or self-care (01) ==
LOC: HO.LAB 11:33
PROVIDERS: PCP Internal Medicine; Visit Provider Urology
DX: N39.0 Urinary tract infection, site not specified (principal)
CPT/HCPCS: 81001; 87086; 87088; 87186

== ENCOUNTER 2025-01-14 11:26 | Outpatient (AMB) | payer MEDICARE, SELFPAY ==
--- NOTE | 2025-01-14 10:16 | A.OFFPC_ITS ---
Vital Signs 01/14/25 11:28 Height 5 ft Weight 112 lb BMI 21.9 BP 136/72 Blood Pressure Location Lt brachial Position Sitting Pulse 67 Pulse Source Pulse Oximeter Temp 97.1 F Temp Source Axillary Pulse Oximetry (%) 98 Oxygen Delivery Method Room Air Intake Visit Reasons: Routine Graphics Production Specialist Required: No Accompanied by: Self / Same As Patient Allergies No Known Allergies Allergy (Verified 01/14/25 10:16) Tobacco use date assessed: 01/14/25 Fall risk assessment: No Falls in past year Last assessed Fall Risk: 01/14/25 Dental Screening Dental Screen Date: 01/14/25 Did you have a dental visit in the last 12 months?: Yes Did you have a dental problem in the last 6 months where you did not have access to dental care?: No HPI HPI Comments History of Present Illness Details Jeanna is an 89-year-old female with a past medical history of hypertension, hyperlipidemia, AVR, GERD, osoteoporosis presenting for follow up. Moved fro [place] a few years ago. Last annual with PCP was May 2024 CV: Previously on htn, hld medications. ROS CONSTITUTIONAL: Denies weight loss, fever and chills. HEENT: Denies changes in vision and hearing. RESPIRATORY: Denies SOB and cough. CV: Denies palpitations and CP GI: Denies abdominal pain, nausea, vomiting and diarrhea. : Denies dysuria and urinary frequency. MSK: Denies new myalgia and joint pain. SKIN: Denies rash and pruritus. NEUROLOGICAL: Denies headache PSYCHIATRIC: Denies recent changes in mood. PHYSICAL EXAM: GENERAL: Alert and oriented x 3. NAD EYES: EOMI. Anicteric. HENT: Moist mucous membranes. No scleral icterus. No cervical lymphadenopathy. LUNGS: Clear to auscultation bilaterally. CARDIOVASCULAR: Regular rate and rhythm. No murmur. No JVD. ABDOMEN: Soft, non-tender +bs EXTREMITIES: No edema. Non-tender. SKIN: No rashes or lesions. Warm. NEUROLOGIC: No focal neurological deficits. CN II-XII grossly intact PSYCHIATRIC: Cooperative. Appropriate mood and affect [facility] Family History Mother No problems noted. Father No problems noted. Social History Housing: Apartment Patient Tobacco Use Status: Never used Tobacco e-Cigarette/Vaping Use: Never Used service: No Current occupational status: retired Cognitive needs: No Hearing needs: Yes (bilateral hearing aids ) Vision needs: No Questionnaire PHQ-9 Over the last 2 weeks, how often have you been bothered by any of the following problems? 1. Little interest or pleasure in doing things: not at all 2. Feeling down, depressed, or hopeless: not at all 3. Trouble falling or staying asleep, or sleeping too much: not at all 4. Feeling tired or having little energy: not at all 5. Poor appetite or overeating: not at all 6. Feeling bad about yourself - or that you are a failure or have let yourself or your family down: not at all 7. Trouble concentrating on things, such as reading the newspaper or watching television: not at all 8. Moving or speaking so slowly that other people could have noticed. Or the opposite - being so fidgety or restless that you have been moving around a lot more than usual: not at all 9. Thoughts that you would be better off or of hurting yourself in some way: not at all Total score: 0 Depression Screening Interpretation: Negative Depression Screening Done: Yes 24770 - PHQ-9 Billing: Yes Source: Developed by Drs. Frandy Sparks, Kaylan Locke, Greg Mcneill and colleagues, with an educational dick from [employer]. Thrive Questionnaire Date Thrive assessed: 01/14/25 I am a: Patient Within the past 12 months, did the food you bought not last and you didn't have the money to get more?: Never true Within the past 12 months, did you worry whether your food would run out before you got money to buy more?: Never true Do you have trouble paying for medicines?: No Do you have trouble getting transportation to medical appointments?: No Do you have trouble paying your heating and electricity bill?: No Do you have trouble taking care of your child, family member or friend?: No Do you have trouble with day-to-day activities such as bathing, preparing meals, shopping, managing finances, etc.?: No Are you currently unemployed and looking for a job?: No Are you interested in more education?: No THRIVE Score: 0 AUDIT C Alcohol Use Questionnaire (AUDIT-C) 1. How often do you have a drink containing alcohol?: Monthly or less 2. How many drinks containing alcohol do you have on a typical day when you are drinking?: 1 or 2 3. How often do you have six or more drinks on one occasion?: Less than monthly Total Score: 2 LYDIA-7 AMB Questionnaire LYDIA-7 Date LYDIA - 7 assessed: 01/14/25 Feeling nervous, anxious, or on edge: 0 = Not at all Not being able to stop or control worryin = Not at all Worrying too much about different things: 0 = Not at all Trouble relaxin = Not at all Being so restless that it is hard to sit still: 0 = Not at all Becoming easily annoyed or irritable: 0 = Not at all Feeling afraid as if something awful might happen: 0 = Not at all Total LYDIA-7 score (0-4 normal; 5-9 mild; 10-14 moderate; 15-21 severe): 0 Source: Developed by Drs. Frandy Sparks, Kaylan Locke, Greg Mcneill and colleagues, with an educational dick from [employer]. Physical exam (Primary Care) Vital Signs: Last Vital Signs Temp 97.1 F 01/14/25 11:28 Pulse 67 01/14/25 11:28 BP 136/72 01/14/25 11:28 Pulse Ox 98 01/14/25 11:28 Oxygen Delivery Method Room Air 01/14/25 11:28 BMI result Body Mass Index 21.9 Tobacco/Smoking Status: Tobacco use Status Tobacco use date assessed 01/14/25 01/14/25 10:18 Patient Tobacco Use Status Never used Tobacco 01/14/25 10:18 e-Cigarette/Vaping Use Never Used 01/14/25 10:18 PHQ-9: PHQ-9 Score PHQ-9: Total score 0 01/17/25 17:49 Depression Screening Interpretation: Negative Thrive Assessment: Date of Thrive Assessment Date Thrive assessed 01/14/25 01/14/25 10:18 Coding Level of Care Code New Pt Level 4 (66530) Complex EM visit Add On G2211 Diagnoses Primary hypertension I10 Hypertension type: primary hypertension Hyperlipidemia, unspecified hyperlipidemia type E78.5 Hyperlipidemia type: unspecified Frequent urination R35.0 Complicated urinary tract infection N39.0 Additional Codes PHQ-9 - 93371 - PHQ-9 Billing: Yes ([id number]) Assessment & Plan Assessment & Plan (1) Hypertension: Code(s): I10 - Essential (primary) hypertension Category: Medical Qualifiers: Hypertension type: primary hypertension Qualified Code(s): I10 - Essential (primary) hypertension (2) Hyperlipidemia: Code(s): E78.5 - Hyperlipidemia, unspecified Category: Medical Qualifiers: Hyperlipidemia type: unspecified Qualified Code(s): E78.5 - Hyperlipidemia, unspecified (3) Frequent urination: Code(s): R35.0 - Frequency of micturition Category: Medical (4) Complicated urinary tract infection: Code(s): N39.0 - Urinary tract infection, site not specified Category: Medical Plan 89 year old female to establish care Labs ordered Frequent uti. UA ordered Orders: Orders Lipid Panel 01/14/25 E78. - Hyperlipidemia, unspecified, I10 - Essential (primary) hypertension, R35.0 - Frequency of micturition Complete Blood Count Auto Diff 01/14/25 E78. - Hyperlipidemia, unspecified, I10 - Essential (primary) hypertension, R35.0 - Frequency of micturition Hemoglobin A1c 01/14/25 E78. - Hyperlipidemia, unspecified, I10 - Essential (primary) hypertension, R35.0 - Frequency of micturition Comprehensive Met. Panel 01/14/25 E78. - Hyperlipidemia, unspecified, I10 - Essential (primary) hypertension, R35.0 - Frequency of micturition Vitamin B12 and Folate 01/14/25 E78.5 - Hyperlipidemia, unspecified, I10 - Essential (primary) hypertension, R35.0 - Frequency of micturition UA CC w/rflx Micro + Cult 01/14/25 E7. - Hyperlipidemia, unspecified, I10 - Essential (primary) hypertension, R35.0 - Frequency of micturition
[2025-01-14 11:28] VITALS: BP 136/72; PULSE 67; TEMP 36.2; O2SAT 98; BMI 21.9
--- OUTSIDE RECORDS SUMMARY | 2025-01-14 12:03 | XMS_ITS | Patient Health Record ---
Author Organization [facility] Address [address] [facility] [address] [place], [place] [id number] Care Team Providers Care Digital Account Manager Name Role Phone gali, joan Primary Care Provider Giuliana Barragan Unavailable [phone] Reason For Referral No Information Medications Medication [...] Status Risk Notes Problem Low back pain (410063884) Low back pain (M54.5) Active confirmed Problem Age-related osteoporosis (642595510) Age-related osteoporosis without current pathological fracture (M81.0) Active confirmed Pt to skyler nue calcium and vitamin D supplementation along with weight bearing exercises as tolerated. Will continue Prolia as well. Problem Fibromyalgia (236108811) Fibromyalgia (M79.7) Active confirmed Continue pharmacological and non pharmacological measures. 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
--- OUTSIDE RECORDS SUMMARY | 2025-01-14 12:03 | XMS_ITS | Continuity of Care Document ---
Author Organization [facility] Address [address] [place] [address] Phone Care Team Providers Care Volleyball Commentator Name Role Phone Juan A Morrow MD [...] on Encounter Office/outpa tient visit,est, mod [facility], [address], [place], [address], [place] tel:[phone] [facility] Other low back painSpinal stenosis, lumbar region with neurogenic claudication Sep-1 2 Odalys Velazco. [address], [address], [facility] [place], [address] , [place]. tel:[phone] Referring Provider: Juan A Sepulveda, [address] [facility] A, [place], [address] . tel:[phone] [facility], [address] [place], [address], [place] tel:[phone] [address] [place] [address] Surgical [place] No Information Mar- 2 Odalys Velazco. [address], [facility] A, [place], [id number] , [place]. tel:[phone] Referring Provider: Juan A Sepulveda, [place], [address] . tel:[phone] Office/outpa tient visit,est, [facility], [address], [place], [address], [place] tel:[phone] [facility] Spinal stenosis, lumbar region with neurogenic claudicationOt her low back pain 2 Odalys Velazco. [address], [address], [place], [address] , [place]. tel:[phone] Referring Provider: Juan A Sepulveda, [address], [place], [address] . tel:[phone] Office/outpa tient visit,est, mod [facility], [address], [place], [address], tel:[phone] [address] [place] [address] Spinal stenosis, lumbar region with neurogenic claudication 1 Odalys Velazco. [address], [address], [place], [address] , [place]. tel:[phone] Referring Provider: Juan A Sepulveda, [address], [place], [address] . tel:[phone] [facility], [address], [place], [address], tel:[phone] [facility] No Information 1 Odalys Velazco. [address], [address], [place], [address] , [place]. tel:[phone] Referring Provider: Juan A Sepulveda, [address], [place], [address] . tel:[phone] Office/outpa tient visit,est, [facility], [address], [place], [address], [place] tel:[phone] [facility] Spinal stenosis, lumbar region with neurogenic claudication 1 Odalys Velazco. [address], [address], [place], [place], [address] , [place]. tel:[phone] Referring Provider: Juan A Sepulveda, [address], [place], [address] . tel:[phone] Office/outpa tient visit,[facility], [facility], [address], [place], [address], [place] tel:[phone] 700 [facility] left wrist pain (chief complaint) Carpal tunnel syndrome, left upper limb 0 Toy Bateman. [address] [facility], [facility], [place], [place], [id number] , [place]. tel:[phone] Referring Provider: Juan A Sepulveda, [facility] [address], [facility] [place], [address] . tel:[phone] Office/outpa tient visit,est, mod [facility], [facility] [address] [facility], [place], [address], [place] tel:[phone] 700 [facility] No Information Jan-0 0 Odalys Velazco. [address] [facility], [facility] A, [place], [place], [address] , [place]. tel:[phone] [facility], [facility] [place], [address], [place] tel:[phone] [facility] No Information Jan-0 0 Odalys Velazco. [address] [facility], [facility] A, [place], [place], [address] , [place]. tel:[phone] Referring Provider: Scar Parra, [address] [place], [address]. tel:[phone] Office/outpa tient visit,est, mod [facility], [facility] [place], [address], [place] [phone] 700 [facility] No Information 0 Odalys Velazco. [address], [facility] A, [place], [place], [address] , [place]. [phone] [facility], [facility] [place], [address], [place] tel:[phone] 700 [facility] No Information 9 Odalys Velazco. [address] [facility] A, [place], [place], [address] , [place]. tel:[phone] [facility], [address], [place], [address], [place] tel:[phone] 700 [facility] No Information 9 Odalys Velazco. [address], [address], [place], [place], [id number] , [place]. tel:[phone] Office/outpa tient visit,[facility], [address] [place], [address], [place] tel:[phone] [facility] No Information 9 Aida Abbott. [address] [place], [address]. tel: [phone] [facility], [address] [place], [address], [place] [phone] 700 [facility] No Information 9 Aida Abbott. [address] [place], [address]. tel: [phone] Referring Provider: Scar Parra, [address] [place], [address]. tel:[phone] Office/outpa [facility]ient visit,[facility], [address] [place], [address], [place] [phone] 700 [facility] No Information 9 Aida Abbott. [address] [place], [address]. tel: [phone] Family History Family Member Type Diagnosis Age At Onset No Information Payers Payer name Insurance type Covered constitution party ID Authorsrikantha russel(s) Medicare [place] MB [id number] [facility] Supplemental CI [id number] Social History Type Description Quantity Date Captured Comments Alcohol Use Details Unknown Caffeine Use Details Unknown Tobacco Use Status No Information Smoking Status No Information Sex Female Gender Identity Female Chief Complaint And Reason For Visit No Information Reason For Referral Reason For Referral No Information Plan Of Treatment Date Type Action Status Future Order: Radiology Order MR I Lumbar Spine WO Contrast ([id number]), Collected on: , Sent on: Sent History [...]
== END 2025-01-14 11:45 | disposition home or self-care (01) ==
LOC: HO.HMCHD 11:27
PROVIDERS: PCP Internal Medicine; Visit Provider Internal Medicine
DX: I10 Essential (primary) hypertension (principal); E78.5 Hyperlipidemia, unspecified; R35.0 Frequency of micturition; N39.0 Urinary tract infection, site not specified

== ENCOUNTER → 2025-01-14 11:26 | Outpatient (BNVA) | payer MEDICARE, SELFPAY | PROVIDERS: PCP Internal Medicine; Visit Provider Internal Medicine | DX: Z13.89 Encounter for screening for other disorder (principal) | CPT/HCPCS: 96127; 99202 ==

== ENCOUNTER 2025-01-14 11:49 | Outpatient (REF) | payer MEDICARE, SELFPAY ==
--- OUTSIDE RECORDS SUMMARY | 2025-01-14 12:20 | XMS_ITS | Continuity of Care Document ---
Author Organization [facility] Address [address] [place] [address] Phone Care Team Providers Care Director Supply Name Role Phone Juan A Morrow MD [...] on Encounter Office/outpa tient visit,est, mod [facility], [address], [place], [address], [place] tel:[phone] [facility] Other low back painSpinal stenosis, lumbar region with neurogenic claudication Sep-1 2 Odalys Velazco. [address], [address], [facility] [place], [address] , [place]. tel:[phone] Referring Provider: Juan A Sepulveda, [address] [facility] A, [place], [address] . tel:[phone] [facility], [address] [place], [address], [place] tel:[phone] [address] [place] [address] Surgical [place] No Information Mar- 2 Odalys Velazco. [address], [facility] A, [place], [address] , [place]. tel:[phone] Referring Provider: Juan A Sepulveda, [place], [address] . tel:[phone] Office/outpa tient visit,est, [facility], [address], [place], [address], [place] tel:[phone] [facility] Spinal stenosis, lumbar region with neurogenic claudicationOt her low back pain 2 Odalys Velazco. [address], [address], [place], [address] , [place]. tel:[phone] Referring Provider: Juan A Sepulveda, [address], [place], [address] . tel:[phone] Office/outpa tient visit,est, mod [facility], [address], [place], [address], tel:[phone] [address] [place] [address] Spinal stenosis, lumbar region with neurogenic claudication 1 Odalys Velazco. [address], [address], [place], [address] , [place]. tel:[phone] Referring Provider: Juan A Sepulveda, [address], [place], [address] . tel:[phone] [facility], [address], [place], [address], tel:[phone] [facility] No Information 1 Odalys Velazco. [address], [address], [place], [address] , [place]. tel:[phone] Referring Provider: Juan A Sepulveda, [address], [place], [address] . tel:[phone] Office/outpa tient visit,est, [facility], [address], [place], [address], [place] tel:[phone] [facility] Spinal stenosis, lumbar region with neurogenic claudication 1 Odalys Velazco. [address], [address], [place], [address] , [place]. tel:[phone] Referring Provider: Juan A Sepulveda, [address], [place], [address] . tel:[phone] Office/outpa tient visit,[facility], [facility], [address], [place], [address], [place] tel:[phone] 700 [facility] left wrist pain (chief complaint) Carpal tunnel syndrome, left upper limb [address] [facility], [facility], [place], [place], [address] , [place]. tel:[phone] Referring Provider: Juan A Sepulveda, [facility] [address], [place] [facility] [place], [address] . tel:[phone] Office/outpa tient visit,est, mod [facility], [facility] [address] [facility], [place], [address], [place] tel:[phone] 700 [facility] No Information Jan-0 0 Odalys Velazco. [address] [facility], [facility] A, [place], [place], [address] , [place]. tel:[phone] [facility], [facility] [place], [address], [place] tel:[phone] [facility] No Information Jan-0 0 Odalys Velazco. [address] [facility], [facility] A, [place], [place], [address] , [place]. tel:[phone] Referring Provider: Scar Parra, [address] [place], [address]. tel:[phone] Office/outpa tient visit,est, mod [facility], [facility] [place], [address], [place] [phone] 700 [facility] No Information 0 Odalys Velazco. [address], [facility] A, [place], [address] , [place]. [phone] [facility], [facility] [place], [address], [place] tel:[phone] 700 [facility] No Information 9 Odalys Velazco. [address] [facility], [place], [place], [address] , [place]. tel:[phone] [facility], [address], [place], [address], [place] tel:[phone] 700 [facility] No Information 9 Odalys Velazco. [address], [address], [place], [place], [address] , [place]. tel:[phone] Office/outpa tient visit,[facility], [address] [place], [address], [place] tel:[phone] [facility] No Information 9 Aida Abbott. [address] [place], [address]. tel: [phone] [facility], [address] [place], [address], [place] [phone] 700 [facility] No Information 9 Aida Abbott. [address] [place], [address]. tel: [phone] Referring Provider: Scar Parra, [address] [place], [address]. tel:[phone] Office/outpa tient visit,[facility], [address] [place], [address], [place] [phone] 700 [facility] No Information 9 Aida Abbott. [address] [place], [address]. tel: [phone] Family History Family Member Type Diagnosis Age At Onset No Information Payers Payer name Insurance type Covered libertarian ID Authorsrikantha russel(s) Medicare [place] MB [id number] [facility] Supplemental CI [id number] Social History Type Description Quantity Date Captured Comments Alcohol Use Details Unknown Caffeine Use Details Unknown Tobacco Use Status No Information Smoking Status No Information Sex Female Gender Identity Female Chief Complaint And Reason For Visit No Information Reason For Referral Reason For Referral No Information Plan Of Treatment Date Type Action Status Future Order: Radiology Order MR I Lumbar Spine WO Contrast ([id number]), Collected on: , Sent on: Sent History [...]
[2025-01-14 13:18] LABS: MANUAL DIFF FLAG NO
[2025-01-14 13:31] LABS: Basophils Absolute Auto 0.1 X10*3/uL (0.0-0.2); Basophils Percent Auto 0.9 % (0-2); Eosinophils Absolute Auto 0.4 X10*3/uL (0.0-0.4); Eosinophils Percent Auto 6.2 % (0-4); Hematocrit 37.5 % (37.0-47.0); Hemoglobin 12.3 g/dl (12.0-16.0); Imm Gran Abs Auto 0.04 X10*3/uL (0.00-0.03); Imm Gran Pct Auto 0.6 % (0.0-0.4); Lymphocytes Percent Auto 15.3 % (20-40); Mean Corpuscular HGB Conc 32.8 g/dl (31.0-35.0); Mean Corpuscular Hemoglobin 29.9 pg (27.0-33.0); Mean Platelet Volume 10.4 fL (9.4-12.3); Monocytes Absolute Auto 0.4 X10*3/uL (0.1-1.2); Monocytes Percent Auto 6.6 % (2-11); Neutrophils Absolute Auto 4.7 x10*3/uL (2.0-8.3); Neutrophils Percent Auto 70.4 % (45-73); Platelet Count 299 X10*3/uL (160-400); Red Blood Count 4.12 X10*6/uL (4.20-5.50); Red Cell Distribution Width 14.4 % (11.0-16.0); White Blood Count 6.6 X10*3/uL (4.8-10.8)
[2025-01-14 13:50] LABS: Estimated Average Glucose 111 mg/dL; Hemoglobin A1c % 5.5 % (<6.0)
[2025-01-14 13:55] LABS: Alanine Aminotransferase 21 U/L (0-31); Albumin Level 3.6 g/dL (3.5-5.0); Alkaline Phosphatase 76 U/L (39-117); Anion Gap 11 (12-20); Aspartate Amino Transferase 29 U/L (5-31); Bilirubin Total 0.4 mg/dL (0.0-1.0); Blood Urea Nitrogen 11 mg/dL (9-16); Calcium 9.1 mg/dL (8.4-10.2); Carbon Dioxide 27 mmol/L (22-29); Chloride 105 mmol/L (96-108); Cholesterol 163 mg/dL (<200); Estimated Glomerular Filt Rate > 60; Glucose Random 90 mg/dL (60-115); HDL Cholesterol 69 mg/dL (>40); LDL Cholesterol Calculated 82 mg/dL (<100); Potassium 4.3 mmol/L (3.3-5.1); Sodium 139 mmol/L (135-145); Total Protein 6.6 g/dL (6.5-8.0); Triglycerides 62 mg/dL (<150)
[2025-01-14 14:25] LABS: Folate 9.5 ng/mL (> or = 4.0); Vitamin B12 361 pg/mL (200-900)
== END 2025-01-14 11:50 | disposition home or self-care (01) ==
LOC: HO.10HDL 11:49
PROVIDERS: Visit Provider Internal Medicine
DX: E78.5 Hyperlipidemia, unspecified (principal); I10 Essential (primary) hypertension; R35.0 Frequency of micturition; Z13.1 Encounter for screening for diabetes mellitus; K21.9 Gastro-esophageal reflux disease without esophagitis; N39.0 Urinary tract infection, site not specified; Z95.2 Presence of prosthetic heart valve
CPT/HCPCS: 36415; 80053; 80061; 82607; 82746; 83036; 85025; 96127; 99202

== ENCOUNTER 2025-01-20 14:17 | Inpatient (IN) | payer MEDICARE, SELFPAY ==
[2025-01-20] VITALS (9 sets, daily range): BP systolic 130–166; BP diastolic 55–68; PULSE 62–83; RESP 14–20; TEMP 36.5–36.8; O2SAT 96–98; BMI 19.7
--- NOTE | ~2025-01-20 | MR_ITS ---
CLINICAL HISTORY: Dizziness, loss of balance, MCA stenosis MRI Brain Without Contrast: Comparison: None Findings: No restricted diffusion or signs of acute infarction. Basal ganglia are unremarkable Mass effect: No shift in midline structures Intracranial bleeding: No intraparenchymal bleeding or abnormal extra axial blood fluid collections Pituitary: Normal in size Visualized sinuses: Clear Orbital structures: Unremarkable Calvarium: There is no abnormal meningeal thickening or nodularity Impression: Chronic involutional volume loss No signs of acute infarction. This document has been electronically signed by: Frank Miguel MD on 01/21/2025 18:23:47
--- NOTE | ~2025-01-20 | CT_ITS ---
CLINICAL HISTORY: vertebral artery stenosis, dizzines CT angiography head and neck with contrast. 3D Postprocessing. Comparison: None Findings: Aortic arch and cervical great vessels are patent with no aneurysm, dissection, hemodynamically significant stenoses, or occlusion. Calcified atheromatous plaque in the bilateral carotid bifurcations, on the right resulting in severe stenoses of the origins of the bilateral ECAs, mild less than 50% stenoses of the bilateral origins of the ICAs. 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 Minimal reconstitution along the distal V4 segment prior to the basilar confluence. Basilar artery is patent. Mild multifocal stenoses along the left P2 segment FLAT LOCKER. High-grade multifocal stenoses along the distal M1 segments of the MCA and M2 segments of the MCAs. Cerebral arteries are patent. No intracranial aneurysms. No abnormal intracranial enhancement. Subcentimeter left-sided hypodense thyroid nodule. Mucosal thickening throughout the paranasal sinuses. Lung apices clear. Reversal of the cervical lordosis. Multilevel spondylosis/spondylolisthesis with osteophytosis, uncovertebral hypertrophy, facet arthropathy and degenerative disc disease. Osteopenia. Multifocal round lucencies throughout the cervical spine can be seen with myeloma/metastasis amongst other etiologies, should be correlated clinically, nonspecific. Most pronounced focus is along the posterior aspect of the dens of C2 measuring 8 mm with cortical dehiscence. 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 High-grade intracranial arterial stenoses detailed above. No large vessel occlusion. If clinical concern persists consider follow-up MRI. Additional findings described, please see above. This document has been electronically signed by: Ted Yousif MD on 01/20/2025 19:52:35
--- NOTE | ~2025-01-20 | CT_ITS ---
EXAMINATION: CT HEAD WITHOUT CONTRAST CLINICAL INFORMATION: Fall and dizziness COMPARISON: None available. TECHNIQUE: Contiguous axial imaging was performed from the skull base to vertex without intravenous administration of contrast. This CT examination was performed using dose optimization techniques as appropriate, variously including the following: *Automated exposure control *Adjustment of mA and/or kV according to patient size (this includes techniques or standardized protocols for targeted exams where dose is matched to indication/reason for exam; i.e. extremities or head) *Use of iterative reconstruction technique FINDINGS: There is no acute intra-axial, extra-axial bleed, masses or midline shift. There is no acute infarction in the evolution. There is no edema. The sadler to white matter differentiation is maintained normal. The lateral ventricles are moderately enlarged but symmetrical. Bone windows reveal no calvarial abnormality. There is no scalp soft tissue abnormality. Bilateral paranasal sinuses and mastoid air cells are well-aerated. No scalp soft tissue abnormality seen., CT/CT head/brain wo IV con IMPRESSION: No acute intracranial process seen. Electronically signed by: Mp Herrera MD 01/20/2025 04:56 PM EDT
--- NOTE | 2025-01-20 15:05 | ED.DIZZY ---
HPI - Dizziness General Chief Complaint: Dizziness Stated Complaint: Falls- Dizzy Spells Time Seen by Provider: 01/20/25 16:26 Source: patient Mode of arrival: ambulatory Limitations: no limitations History of Present Illness ED Provider: HPI Narrative: Patient is 89 years old with history of hypertension healthy and active came here for intermittent dizziness which started about 1 week ago patient feels lightheaded and off balance especially when she moves and stands up, and she fell earlier because of dizziness without any significant injury also complaining of mild posterior head discomfort for last few no palpitation no chest pain no shortness a breath no syncope episode no history of similar episodes in the past no history of tinnitus Related Data Home Medications ?Medication ?Instructions ?Recorded ?Confirmed aspirin 81 mg tablet,delayed 81 mg PO BEDTIME 01/20/25 01/20/25 release atorvastatin 40 mg tablet 40 mg PO BEDTIME 01/20/25 01/20/25 valsartan 320 mg tablet 320 mg PO BEDTIME 01/20/25 01/20/25 Allergies Allergy/AdvReac Type Severity Reaction Status Date / Time No Known Allergies Allergy Verified 01/20/25 15:07 Review of Systems Review of Systems: Yes all other systems are reviewed and are negative PMF Family History Family History Mother No problems noted. Father No problems noted. Social History Social History Housing: Apartment Patient Tobacco Use Status: Never used Tobacco Smoked in Last 30 Days: No e-Cigarette/Vaping Use: Never Used Use of substances other than those prescribed or required for medical reasons: No Advance Directives: No Advance Directives Information Provided: No Do you have a plan to hurt others: No Plan Nutrition Risks: No Nutritional Risk service: No Current occupational status: retired Cognitive needs: No Hearing needs: Yes (bilateral hearing aids ) Vision needs: No Physical Exam Vital Signs: Vital Signs: Last Vital Signs Temp 98.1 F 01/21/25 00:33 Pulse 67 01/21/25 00:33 Resp 18 01/21/25 00:33 BP 154/65 H 01/21/25 00:33 Pulse Ox 97 01/21/25 00:33 O2 Del Method Room Air 01/21/25 00:33 BMI result Body Mass Index 19.7 Appearance: Alert. Oriented X3. No acute distress. Eyes: PERRLA, No Nystagmus ENT: Pharynx normal. Oral Mucosa moist Neck: Normal inspection. Neck supple. CVS: Normal heart rate and rhythm. Pulses normal. Respiratory: No respiratory distress. Equal air entry bilateral, no wheezing/rales/rhonchi Abdomen: Soft and nontender. Bowel sounds are present, no mass palpable, no CVA tenderness Skin: Skin warm and dry. Normal skin color. Normal skin turgor. Extremities: No lower extremity edema. No calf tenderness Neuro: Oriented X 3. No motor deficit. No sensory deficit.No cerebellar signs , cranial nerves II-XII intact NIH Stroke Scale Time: 16:33 Level of Consciousness: Alert Level of Consciousness Questions: Answers both questions correctly Level of Consciousness Commands: Performs both tasks correctly Best Gaze: Normal Visual: No visual loss Facial Palsy: Normal Motor Arm (Right): No drift Motor Arm (Left): No drift Motor Leg (Right): No drift Motor Leg (Left): No drift Limb Ataxia: Absent Sensory: Normal Best Language: No aphasia Dysarthia: Normal Extinction and Inattention: No abnormality Score: 0 Course Course Course Narrative: 89 yo female with PMH of HTN, HLD, UTI, she did fall at home today has been having dizzy spells when she tries to walk. no CP/SOB. She notes she has these spells on and off sudden dizziness x 1 week. She denies any new recent illness or infection. Daughter also called who is in [place] [phone] . At this time labs, CT head, ortho VS, UA and EKG. Had recent UTI 12/31/24 treated with macrobid E. Coli is susceptible. this is a RAPID medical screening exam the rest of the history and physical exam is to be done by the main provider. FRAN 01/20/25 308pm Medications Administered Generic Name Dose Route Start Last Admin Trade Name Freq PRN Reason Stop Dose Admin Sodium Chloride 3 ml 01/21/25 00:00 01/21/25 00:38 0.9 % Sodium Chloride Flush 3 Ml Syringe IVFLUSH 3 ml QSHIFT NILAY Administration Discontinued Medications Generic Name Dose Route Start Last Admin Trade Name Freq PRN Reason Stop Dose Admin Acetaminophen 975 mg 01/20/25 23:22 01/21/25 00:38 Acetaminophen 325 Mg Tablet PO 01/20/25 23:23 975 mg ONCE STA Administration Aspirin 325 mg 01/20/25 20:08 01/20/25 20:43 Aspirin Enteric Coated 325 Mg Tablet. PO 01/20/25 20:09 325 mg ONCE ONE Administration Ceftriaxone Sodium 1 gm 01/20/25 20:08 01/20/25 20:43 Ceftriaxone Sodium 1 Gm Vial IVPUSH 01/20/25 20:09 1 gm ONCE ONE Administration Clopidogrel Bisulfate 75 mg 01/20/25 20:08 01/20/25 20:43 Clopidogrel Bisulfate 75 Mg Tablet PO 01/20/25 20:09 75 mg ONCE ONE Administration Sodium Chloride 1,000 mls @ 999 mls/hr 01/20/25 16:48 01/20/25 19:11 Ns IV 01/20/25 17:48 Infused .Q1H1M ONE Infusion Iohexol 100 ml 01/20/25 17:55 01/20/25 17:55 Iohexol 350 Mg/Ml 100 Ml Infus..Btl IV 01/20/25 17:56 70 ml ONCE ONE Administration Medical Decision Making Medical Decision Making [facility] Narrative: patient with nonspecific dizziness no cerebellar signs no orthostatic hypotension likely BPPV will do CTA head and neck to rule out vertebral artery strenuous/posterior circulation abnormality patient has had UTI on 12/30 which treated with Macrobid and culture grew E coli which was sensitive to Macrobid urine still showing 4+ bacteria will give p.o. 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 Watson advised to admit start on aspirin and Plavix and MRI in a.m. patient does take 81 mg aspirin daily Differential Diagnosis Differential Diagnoses: The differential diagnosis associated with the presentation includes posterior circulation CVA/vertebral artery stenosis/ BPPV/orthostatic Admission/Observation Consideration of admission/observation: Escalation of care including admission/observation considered Consult Healthcare Provider Management of the patient was discussed with: Hospitalist Lab Data [facility] Lab Attestation statement: I reviewed the patient's lab results. 01/20/25 15:23 01/20/25 15:23 Labs: Lab Results 01/20/25 01/20/25 Range/Units 15:23 18:21 WBC 5.1 (4.8-10.8) X10*3/uL RBC 3.89 L (4.20-5.50) X10*6/uL Hgb 11.8 L (12.0-16.0) g/dl Hct 34.9 L (37.0-47.0) % MCV 89.7 (80.0-98.0) fL MCH 30.3 (27.0-33.0) pg MCHC 33.8 (31.0-35.0) g/dl RDW 14.7 (11.0-16.0) % Plt Count 251 (160-400) X10*3/uL MPV 10.1 (9.4-12.3) fL Immature Gran % (Auto) 0.4 (0.0-0.4) % Neut % (Auto) 68.4 (45-73) % Lymph % (Auto) 16.0 L (20-40) % [place] % (Auto) 9.9 (2-11) % Eos % (Auto) 3.9 (0-4) % Baso % (Auto) 1.4 (0-2) % Lymph # (Auto) 0.8 L (1.2-4.9) X10*3/uL [place] # (Auto) 0.5 (0.1-1.2) X10*3/uL Eos # (Auto) 0.2 (0.0-0.4) X10*3/uL Baso # (Auto) 0.1 (0.0-0.2) X10*3/uL Abs Immat Gran (auto) 0.02 (0.00-0.03) X10*3/uL Absolute Neuts (auto) 3.5 (2.0-8.3) x10*3/uL Absolute Nucleated RBC 0.000 (0.0-0.012) X10*3/uL Nucleated RBC % (auto) 0.0 (0.0-0.2) /100WBC Sodium 138 (135-145) mmol/L Potassium 4.5 (3.3-5.1) mmol/L Chloride 102 (96-108) mmol/L Carbon Dioxide 30 H (22-29) mmol/L Anion Gap 11 L (12-20) BUN 12 (9-16) mg/dL Creatinine 0.60 (0.5-1.4) mg/dL Estim Creat Clear Calc 52.6 Estimated GFR > 60 Random Glucose 91 (60-115) mg/dL Calcium 8.9 (8.4-10.2) mg/dL Magnesium 1.9 (1.6-2.6) mg/dL Total Bilirubin 0.4 (0.0-1.0) mg/dL Direct Bilirubin 0.2 (0.0-0.5) mg/dL AST 25 (5-31) U/L ALT 23 (0-31) U/L Alkaline Phosphatase 82 (39-117) U/L Total Creatine Kinase 40 (26-140) U/L Troponin I High Sens < 2.7 (<3.5-17.0) ng/L Total Protein 6.5 (6.5-8.0) g/dL Albumin 3.8 (3.5-5.0) g/dL Lipase 30 (8-78) U/L Urine Color Yellow Urine Appearance Cloudy Urine pH 7.0 (5.0-9.0) Ur Specific [place] 1.010 (1.005-1.025) Urine Protein Negative (Neg-Trace) mg/dL Urine Glucose (UA) Negative (Negative) mg/dL Urine Ketones Negative (Negative) mg/dL Urine Blood Small (1+) H (Negative) Urine Nitrite Positive H (Negative) Ur Leukocyte Esterase Large (3+) H (Negative) Urine RBC 3-5 H (0-2) /HPF Urine WBC 11-20 (0-5) /HPF Ur Squamous Epith Cells 6-10 (0-2) /HPF Urine Bacteria 4+ (None Seen) Hyaline Casts 0-2 (0-2) /LPF Influenza Type A (PCR) NEGATIVE (Negative) Influenza Type B (PCR) NEGATIVE (Negative) RSV RNA Qual (PCR) NEGATIVE (Negative) SARS-CoV-2 RNA (RT-PCR) NEGATIVE (Negative) Independent Interpretation I performed an independent interpretation of an: EKG Interpretation: normal sinus rhythm heart rate 73 beats per minute poor progression of R-wave no acute STT wave changes no acute ischemia Radiology Impression Discussion of test interpretation with radiology: I have reviewed the radiologist's reading. 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 High-grade intracranial arterial stenoses detailed above. No large vessel occlusion. If clinical concern persists consider follow-up MRI. Additional findings described, please see above. Discharge Plan Discharge Clinical Impression: Vertebral artery occlusion, Transient cerebral ischemia Patient Disposition: Home, Self-Care
--- NOTE | 2025-01-20 15:06 | ECG_ITS ---
Test Reason : DIZZINESS Blood Pressure : */* mmHG Vent. Rate : 73 BPM Atrial Rate : 73 BPM P-R Int : 168 ms QRS Dur : 84 ms QT Int : 400 ms P-R-T Axes : 71 11 51 degrees QTcB Int : 440 ms Normal sinus rhythm Possible Left atrial enlargement Septal infarct , age undetermined Abnormal ECG No previous ECGs available Referred By: Esther Gannon Electronically Signed By: KELVIN GROVES MD
[2025-01-20 15:27] LABS: MANUAL DIFF FLAG NO
[2025-01-20 15:29] LABS: Basophils Absolute Auto 0.1 X10*3/uL (0.0-0.2); Basophils Percent Auto 1.4 % (0-2); Eosinophils Absolute Auto 0.2 X10*3/uL (0.0-0.4); Eosinophils Percent Auto 3.9 % (0-4); Hematocrit 34.9 % (37.0-47.0); Hemoglobin 11.8 g/dl (12.0-16.0); Imm Gran Abs Auto 0.02 X10*3/uL (0.00-0.03); Imm Gran Pct Auto 0.4 % (0.0-0.4); Lymphocytes Absolute Auto 0.8 X10*3/uL (1.2-4.9); Mean Corpuscular HGB Conc 33.8 g/dl (31.0-35.0); Mean Corpuscular Hemoglobin 30.3 pg (27.0-33.0); Mean Corpuscular Volume 89.7 fL (80.0-98.0); Mean Platelet Volume 10.1 fL (9.4-12.3); Monocytes Absolute Auto 0.5 X10*3/uL (0.1-1.2); Monocytes Percent Auto 9.9 % (2-11); Neutrophils Absolute Auto 3.5 x10*3/uL (2.0-8.3); Neutrophils Percent Auto 68.4 % (45-73); Platelet Count 251 X10*3/uL (160-400); Red Blood Count 3.89 X10*6/uL (4.20-5.50); Red Cell Distribution Width 14.7 % (11.0-16.0); White Blood Count 5.1 X10*3/uL (4.8-10.8)
[2025-01-20 15:46] LABS: Alanine Aminotransferase 23 U/L (0-31); Albumin Level 3.8 g/dL (3.5-5.0); Alkaline Phosphatase 82 U/L (39-117); Anion Gap 11 (12-20); Aspartate Amino Transferase 25 U/L (5-31); Bilirubin Direct 0.2 mg/dL (0.0-0.5); Bilirubin Total 0.4 mg/dL (0.0-1.0); Blood Urea Nitrogen 12 mg/dL (9-16); Calcium 8.9 mg/dL (8.4-10.2); Carbon Dioxide 30 mmol/L (22-29); Chloride 102 mmol/L (96-108); Creatinine Clr Calc Pharmacy 52.6; Estimated Glomerular Filt Rate > 60; Glucose Random 91 mg/dL (60-115); Lipase 30 U/L (8-78); Magnesium 1.9 mg/dL (1.6-2.6); Potassium 4.5 mmol/L (3.3-5.1); Sodium 138 mmol/L (135-145); Total Protein 6.5 g/dL (6.5-8.0)
[2025-01-20 16:03] LABS: Troponin-I High Sensitivity < 2.7 ng/L (<3.5-17.0)
[2025-01-20 16:08] LABS: Influenza A PCR NEGATIVE (Negative); Influenza B PCR NEGATIVE (Negative); Resp Syncy Virus RNA Qual PCR NEGATIVE (Negative); SARS COV2 PCR INHOUSE NEGATIVE (Negative)
--- OUTSIDE RECORDS SUMMARY | 2025-01-20 16:18 | XMS_ITS | Patient Health Record ---
Author Organization [facility] Address [address] [place], [place] [id number] Care Team Providers Care Jde Developer Name Role Phone gali, joan Primary Care Provider Giuliana Barragan Unavailable [phone] Reason For Referral No Information Medications Medication [...] Status Risk Notes Problem Low back pain (921878600) Low back pain (M54.5) Active confirmed Problem Age-related osteoporosis (587823486) Age-related osteoporosis without current pathological fracture (M81.0) Active confirmed Pt to skyler nue calcium and vitamin D supplementation along with weight bearing exercises as tolerated. Will continue Prolia as well. Problem Fibromyalgia (839644178) Fibromyalgia (M79.7) Active confirmed Continue pharmacological and non pharmacological measures. 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
[2025-01-20] MEDS: 0.9 % Sodium Chloride 1,000 ML 999 ML IV (17:09)
[2025-01-20] MEDS: iohexoL 350 MG/ML 100 ML INFUS..BTL IV (17:55)
[2025-01-20 18:32] LABS: Appearance Urine Cloudy; Color Urine Yellow; Glucose Urine UA Negative (Negative); Leukocyte Esterase Urine Large (3+) (Negative); Nitrite Urine Positive (Negative); UMIC TRIGGER UACC YES; Urine Blood Small (1+) (Negative); Urine Ketones Negative (Negative); Urine Protein Negative (Neg-Trace)
[2025-01-20 18:56] LABS: Bacteria Urine 4+ (None Seen); Hyaline Casts Urine 0-2 /LPF (0-2); UACC Culture Trigger YES
--- NOTE | 2025-01-20 19:10 | PC.NURSE ---
assumed care of pt at 1900. report received from Margaret COOL.
--- NOTE | 2025-01-20 20:29 | PC.NURSE ---
first set BC obtained by this Rn and sent to lab. tech in room attempting second set cultures now
[2025-01-20] MEDS: cefTRIAXone sodium 1 GM VIAL IVPUSH (20:43)
[2025-01-20] MEDS: Aspirin Enteric Coated 325 MG TABLET.DR PO (20:43)
[2025-01-20] MEDS: Clopidogrel Bisulfate 75 MG TABLET PO (20:43)
--- NOTE | 2025-01-20 21:01 | PC.NURSE ---
pt ambulated to and from bathroom with steady gait with one person assist. reported slight dizziness with standing up from the bed. pt back in stretcher now, resting comfortably, on registered nurse cardiac, in no apparent distress. call beyer within reach. plan of care continues.
[2025-01-20 21:02] LABS: Lactic Acid 0.5 mmol/L (0.5-2.0)
--- NOTE | 2025-01-20 22:03 | PHA.MEDREC ---
Addendum entered by Mirian Castro [facility] 01/20/25 22:30: Reviewed by [facility] Original Note: Pharmacy Consult ? Medication Reconciliation Pharmacy has completed the medication reconciliation. Spoke with pt and she confirmed her medications. Pt confirmed she just moved here recently from [place] and was filling Atorvastatin 40mg tabs and Valsartan (but didn't remember the dose) at a pharmacy over there but was not sure the name of the facility at this time and she takes a Baby Aspirin daily she gets OTC. I was able to call a [facility] hour [facility] on [address] in [place] to see if they have any claims for those medications and they confirmed the pt last picked up Atorvastatin 40mg 05/13 for 90 days and Valsartan 320mg tabs 11/2023 for 30 days. We will have AM team follow up with pt in the AM to see if he can tell us the pharmacy they filled at in [place] and we can call and confirm those meds.
--- NOTE | 2025-01-20 22:38 | P.HPHOSP_ITS ---
History of Present Illness Date of Service: 01/20/25 Attending physician on admission: Carter Zambrano Chief Complaint: Dizziness Jeanna Suresh is a delightful 89 years old woman with past medical history significant for hypertension and hyperlipidemia presents to the emergency department complaining of dizziness (loss of balance, no spinning sensation) that started about 1 week ago. She stated that yesterday she fell down but had no significant traumas to her body or head. She has associated posterior headache 5/10 and without radiations. She also experienced some transitory visual disturbances. She denies nausea, vomiting, loss of consciousness, focal weakness (she reported mild chronic numbness to her left hand). She does not have weakness or paresthesia to her lower extremities. She denies history of strokes, diabetes mellitus or heart disease. She takes aspirin, losartan and atorvastatin daily. She denied tobacco smoking, alcohol abuse or illicit drug use. In the ED she was found to have stable vital signs. Last blood pressure 166/69. Blood workup showed no leukocytosis. Hemoglobin is 11.8 and platelets. There are no significant electrolyte imbalances. CO2 is 30. Renal and liver functions are normal. Urinalysis consistent with urinary tract infection. Head CT scan without contrast showed no acute intracranial process. Head and neck CTA showed age indeterminate intermittent occlusions throughout the left vertebral artery, high-grade intracranial arterial stenosis MCA and no large vessel obstruction. ECG showed normal sinus rhythm, heart rate 73 bpm. ED tx: NS 1000 ml bolus, ceftriaxone 1 g IV, Plavix 75 mg p.o., aspirin 325 mg p.o. Case has been discussed with Dr. Watson from neurologist service who recommended admission, MRI and start t x w/ Plavix. Review of Systems 2 Review of Systems: All 12 systems were reviewed and normal except as noted in HPI. [facility] Family History Mother No problems noted. Father No problems noted. Social History Housing: Apartment Patient Tobacco Use Status: Never used Tobacco Smoked in Last 30 Days: No e-Cigarette/Vaping Use: Never Used Use of substances other than those prescribed or required for medical reasons: No Advance Directives: No Advance Directives Information Provided: No Do you have a plan to hurt others: No Plan Nutrition Risks: No Nutritional Risk service: No Current occupational status: retired Cognitive needs: No Hearing needs: Yes (bilateral hearing aids ) Vision needs: No Meds Allergies Allergy/AdvReac Type Severity Reaction Status Date / Time No Known Allergies Allergy Verified 01/20/25 15:07 Active Medications: Current Medications Acetaminophen (Acetaminophen 325 Mg Tablet) 650 mg PO Q6H PRN PRN Reason: Pain, Mild 1-3,fever,headache Aspirin (Aspirin Enteric Coated 81 Mg Tablet.Dr) 81 mg PO DAILY NILAY Calcium Carbonate (Calcium Carbonate 750 Mg Tab.Chew) 750 mg PO Q4H PRN PRN Reason: Heartburn Clopidogrel Bisulfate (Clopidogrel Bisulfate 75 Mg Tablet) 75 mg PO DAILY NILAY Magnesium Hydroxide (Milk Of Magnesia 30 Ml Oral.Susp) 30 ml PO DAILY PRN PRN Reason: Constipation Melatonin (Melatonin 3 Mg Tablet) 6 mg PO BEDTIME PRN PRN Reason: Insomnia Ondansetron HCl (Ondansetron Hcl 4 Mg/2 Ml Vial) 4 mg IVPUSH Q8H PRN PRN Reason: Nausea and Vomiting Sodium Chloride (0.9 % Sodium Chloride Flush 3 Ml Syringe) 3 ml IVFLUSH QSHIFT [facility] Home Medications ?Medication ?Instructions ?Recorded ?Confirmed ?Last Taken ?Type aspirin 81 mg tablet,delayed 81 mg PO BEDTIME 01/20/25 01/20/25 01/19/25 History release atorvastatin 40 mg tablet 40 mg PO BEDTIME 01/20/25 01/20/25 01/19/25 History valsartan 320 mg tablet 320 mg PO BEDTIME 01/20/25 01/20/25 01/19/25 History Physical Exam 2 Vital Signs and Narrative: Vital Signs: Last Vital Signs Temp 98.1 F 01/20/25 22:00 Pulse 65 01/20/25 22:00 Resp 16 01/20/25 22:00 BP 166/61 H 01/20/25 22:00 Pulse Ox 96 01/20/25 22:00 O2 Del Method Room Air 01/20/25 22:00 BMI result Body Mass Index 19.7 Const: General: cooperative, no acute distress, alert and awake Nutritional Appearance: thin Orientation/consciousness: patient oriented x3 L imitations: no limitations HEENT: Head: Yes normal to inspection, Yes normocephalic and Yes atraumatic Ears: other (Hard of hearing) Eyes: General: appearance normal, both eyes and all related structures E yelids: Yes eyelids normal Sclerae: sclerae normal Pupils: Equal, round and reactive pupils present and Pupil accommodation reflex normal EOM: EOMs intact bilaterally Neck: Yes normal visual inspection and Yes tender Chest: Chest palpation & inspection: normal inspection of the chest Resp: Effort & Inspection: normal respiratory effort and able to speak in complete sentences Auscultation: clear to auscultation bilaterally Cardio: Rate: regular rate Rhythm: regular rhythm Heart sounds: Other heart sounds present (No murmurs.) GI: Inspection: Yes normal to inspection Palpation (GI): Soft to palpation Auscultation: normal bowel sounds Neuro: General: patient oriented x3 Cranial nerves: Yes CN's II-XII intact bilaterally, Yes Equal, round and reactive pupils present, Yes Bilaterally intact EOM present and Yes Nystagmus not present Speech: Other speech findings present (Neuro) (Normal speech) Motor exam (neuro): 5/5 motor strength present throughout, no tremor noted and Motor abnormalities not present Extrem: General: Yes normal to inspection and Yes full ROM Psych: Mental Status: mental status grossly normal Speech and movement: N ormal speech and movement present Affect: normal affect Attitude: c ooperative Thought process: Normal thought process present Thought content: Normal thought content present Judgement: Good judgement present (Psych) Results Labs 01/20/25 15:23 01/20/25 15:23 Labs: Laboratory Results - last 24 hr 01/20/25 01/20/25 01/20/25 15:23 18:21 20:42 MCV 89.7 MCH 30.3 MCHC 33.8 RDW 14.7 Plt Count 251 MPV 10.1 Immature Gran % (Auto) 0.4 Neut % (Auto) 68.4 Lymph % (Auto) 16.0 L [place] % (Auto) 9.9 Eos % (Auto) 3.9 Baso % (Auto) 1.4 Lymph # (Auto) 0.8 L [place] # (Auto) 0.5 Eos # (Auto) 0.2 Baso # (Auto) 0.1 Abs Immat Gran (auto) 0.02 Absolute Neuts (auto) 3.5 Absolute Nucleated RBC 0.000 Nucleated RBC % (auto) 0.0 Anion Gap 11 L Estim Creat Clear Calc 52.6 Estimated GFR > 60 Random Glucose 91 Lactic Acid 0.5 Calcium 8.9 Magnesium 1.9 Total Bilirubin 0.4 Direct Bilirubin 0.2 AST 25 ALT 23 Alkaline Phosphatase 82 Total Creatine Kinase 40 Total Protein 6.5 Albumin 3.8 Lipase 30 Urine Color Yellow Urine Appearance Cloudy Urine pH 7.0 Ur Specific [place] 1.010 Urine Protein Negative Urine Glucose (UA) Negative Urine Ketones Negative Urine Blood Small (1+) H Urine Nitrite Positive H Ur Leukocyte Esterase Large (3+) H Urine RBC 3-5 H Urine WBC 11-20 Ur Squamous Epith Cells 6-10 Urine Bacteria 4+ Hyaline Casts 0-2 Influenza Type A (PCR) NEGATIVE Influenza Type B (PCR) NEGATIVE RSV RNA Qual (PCR) NEGATIVE SARS-CoV-2 RNA (RT-PCR) NEGATIVE Imaging Radiologist's Impressions: Impressions Head CT 01/20/25 15:06 IMPRESSION: No acute intracranial process seen. Electronically signed by: Mp Herrera MD 01/20/2025 04:56 PM EDT RP Assessment and Plan (1) Intracranial carotid stenosis: Qualifiers: Laterality: unspecified laterality Qualified Code(s): I65.29 - Occlusion and stenosis of unspecified carotid artery Status: Acute (2) UTI (urinary tract infection): Qualifiers: Urinary tract infection type: acute cystitis Hematuria presence: w ithout hematuria Qualified Code(s): N30.00 - Acute cystitis without hematuria Status: Acute (3) Hyperlipidemia: Qualifiers: Hyperlipidemia type: unspecified Qualified Code(s): E78.5 - Hyperlipidemia, unspecified Status: Acute (4) Hypertension: Qualifiers: Hypertension type: primary hypertension Qualified Code(s): I10 - Essential (primary) hypertension Status: Acute Plan Jeanna Suresh is a 89 y/o woman admitted with: 1. Dizziness likely secondary to high-grade intracranial arterial stenoses (MCA segments). Admit to hospitalist service. Telemetry. Continue treatment with aspirin and Plavix. Brain MRI in the morning. Neurology consult. Fall precautions (patient educated). 2. Urinary tract infection. Continue ceftriaxone. Urine culture obtained -will follow results. 3. Essential hypertension. Continue valsartan. 4. Hyperlipidemia. Continue statin. DVT prophylaxis: SCDs. Code status: Full Patient will need hospitalization for at least 2 midnights for dizziness secondary to high-grade intracranial arterial stenosis Quality Stroke Does the patient have a stroke diagnosis?: No VTE Prior VTE?: No VTE Risk Level:: Medical - moderate - high VTE Device Contraindication: N/A - Device Ordered VTE Drug Contraindication: N/A - Med Ordered
[2025-01-21] VITALS (8 sets, daily range): BP systolic 116–163; BP diastolic 56–72; PULSE 60–77; RESP 12–19; TEMP 36.2–37.3; O2SAT 96–97; BMI 20.8
[2025-01-21] MEDS: Acetaminophen 325 MG TABLET 975 MG PO (00:38)
[2025-01-21] MEDS: 0.9 % Sodium Chloride Flush 3 ML SYRINGE IVFLUSH ×4 (00:38→22:12)
--- NOTE | 2025-01-21 01:24 | PC.NURSE ---
patient ambulated with another RN to bathroom, standby assist with steady gait, however once patient closed the door to the bathroom she had a fall, unsure of head strike. nurse went in immediately to assist patient up and back into the bed. pt placed back in the bed and denied any acute pain, new injuries/trauma, etc. Nurse put in IR, contacted MD Miguel malagon. MD to bedside for assessment. pt presented with same LOC, no new pain or injuries, said she was not sure if she hit her head but did not think so. pt medicated with tylenol for pain to head that was there prior to the fall. vital signs updated immediately after, pt on library monitor , purewick in place and pt informed no more getting up/ambulating to use the bathroom. plan of care continues.
[2025-01-21 05:45] LABS: MANUAL DIFF FLAG NO
[2025-01-21 05:46] LABS: Basophils Absolute Auto 0.1 X10*3/uL (0.0-0.2); Basophils Percent Auto 1.2 % (0-2); Eosinophils Absolute Auto 0.2 X10*3/uL (0.0-0.4); Eosinophils Percent Auto 3.4 % (0-4); Hematocrit 32.3 % (37.0-47.0); Hemoglobin 10.9 g/dl (12.0-16.0); Imm Gran Abs Auto 0.01 X10*3/uL (0.00-0.03); Imm Gran Pct Auto 0.2 % (0.0-0.4); Mean Corpuscular HGB Conc 33.7 g/dl (31.0-35.0); Mean Corpuscular Hemoglobin 29.7 pg (27.0-33.0); Mean Platelet Volume 10.5 fL (9.4-12.3); Monocytes Absolute Auto 0.5 X10*3/uL (0.1-1.2); Monocytes Percent Auto 9.1 % (2-11); Neutrophils Absolute Auto 4.2 x10*3/uL (2.0-8.3); Neutrophils Percent Auto 70.1 % (45-73); Platelet Count 215 X10*3/uL (160-400); Red Blood Count 3.67 X10*6/uL (4.20-5.50); Red Cell Distribution Width 14.6 % (11.0-16.0); White Blood Count 5.9 X10*3/uL (4.8-10.8)
[2025-01-21 06:02] LABS: Anion Gap 10 (12-20); Blood Urea Nitrogen 9 mg/dL (9-16); Calcium 8.3 mg/dL (8.4-10.2); Carbon Dioxide 24 mmol/L (22-29); Chloride 107 mmol/L (96-108); Creatinine Clr Calc Pharmacy 61.9; Estimated Glomerular Filt Rate > 60; Glucose Random 78 mg/dL (60-115); Potassium 3.4 mmol/L (3.3-5.1); Sodium 138 mmol/L (135-145)
[2025-01-21 06:05] LABS: Cholesterol 145 mg/dL (<200); HDL Cholesterol 69 mg/dL (>40); LDL Cholesterol Calculated 69 mg/dL (<100); Triglycerides 37 mg/dL (<150)
[2025-01-21] MEDS: Clopidogrel Bisulfate 75 MG TABLET PO (08:34)
[2025-01-21] MEDS: Aspirin Enteric Coated 81 MG TABLET.DR PO ×2 (08:34→22:11)
--- NOTE | 2025-01-21 08:48 | PC.NURSE ---
Pt A&O X4 VSS, denies complaints- ambulated to and from BR with PT. Star well NAD. Steady on feet when I saw her ambulating. Pt star PO well. NSR on environmental monitoring technician.
--- NOTE | 2025-01-21 11:21 | MHC.CM.PN ---
IMM 01/21/25, pt lives with her , she does not have any home health services or use DME, she does have a walker at home, had not been using it. PCP confirmed: Tomasa Catherine, HCP discussed, she is not sure if she has one or not. Family will arrange a ride home at DC, DCP: home either self care or with services. CM to follow for DC needs.
--- NOTE | 2025-01-21 13:06 | PC.NURSE ---
PT A&O X4 VSS NAD Family at bedside- Pt cooperative and pleasant. No complaints.
--- NOTE | 2025-01-21 16:58 | HO.PM.IMPN ---
Subjective Subjective Date of Service: 01/21/25 Interval History: dizziness Review of Systems dizziness somewhat improving denies any new c/o Physical Exam Vital Signs: Vital Signs: Last Vital Signs Temp 97.9 F 01/21/25 13:05 Pulse 60 01/21/25 16:09 Resp 16 01/21/25 16:09 BP 145/64 H 01/21/25 16:09 Pulse Ox 97 01/21/25 16:09 O2 Del Method Room Air 01/21/25 16:09 BMI result Body Mass Index 19.7 Appearance: Alert.? Oriented X3. cvs: [id number], [id number] . res: clear to auscultation ,no rhonchii or wheezing abd: no rebound or guarding ,nt, bs present. ext pulses present , no cyanosis . neuro: axo3 , nonfocal. Objective Data Active Medications Acetaminophen (Acetaminophen 325 Mg Tablet) 650 mg PO Q6H PRN PRN Reason: Pain, Mild 1-3,fever,headache Aspirin (Aspirin Enteric Coated 81 Mg Tablet.) 81 mg PO DAILY [facility] Last Admin: 01/21/25 08:34 Dose: 81 mg Documented By: RONN Aspirin (Aspirin Enteric Coated 81 Mg Tablet.) 81 mg PO BEDTIME [facility] Atorvastatin Calcium (Atorvastatin Calcium 40 Mg Tablet) 40 mg PO BEDTIME [facility] Calcium Carbonate (Calcium Carbonate 750 Mg Tab.Chew) 750 mg PO Q4H PRN PRN Reason: Heartburn Clopidogrel Bisulfate (Clopidogrel Bisulfate 75 Mg Tablet) 75 mg PO DAILY [facility] Last Admin: 01/21/25 08:34 Dose: 75 mg Documented By: RONN Magnesium Hydroxide (Milk Of Magnesia 30 Ml Oral.Susp) 30 ml PO DAILY PRN PRN Reason: Constipation Melatonin (Melatonin 3 Mg Tablet) 6 mg PO BEDTIME PRN PRN Reason: Insomnia Ondansetron HCl (Ondansetron Hcl 4 Mg/2 Ml Vial) 4 mg IVPUSH Q8H PRN PRN Reason: Nausea and Vomiting Sodium Chloride (0.9 % Sodium Chloride Flush 3 Ml Syringe) 3 ml IVFLUSH QSHIFT [facility] Last Admin: 01/21/25 16:13 Dose: 3 ml Documented By: RONN Valsartan (Valsartan 320 Mg Tablet) 320 mg PO BEDTIME [facility]; Protocol Labs 01/21/25 04:59 01/21/25 04:59 Labs: Laboratory Results - last 24 hr 01/20/25 01/20/25 01/21/25 18:21 20:42 04:59 MCV 88.0 MCH 29.7 MCHC 33.7 RDW 14.6 Plt Count 215 MPV 10.5 Immature Gran % (Auto) 0.2 Neut % (Auto) 70.1 Lymph % (Auto) 16.0 L [place] % (Auto) 9.1 Eos % (Auto) 3.4 Baso % (Auto) 1.2 Lymph # (Auto) 1.0 L [place] # (Auto) 0.5 Eos # (Auto) 0.2 Baso # (Auto) 0.1 Abs Immat Gran (auto) 0.01 Absolute Neuts (auto) 4.2 Absolute Nucleated RBC 0.000 Nucleated RBC % (auto) 0.0 Anion Gap 10 L Estim Creat Clear Calc 61.9 Estimated GFR > 60 Random Glucose 78 Lactic Acid 0.5 Calcium 8.3 L D Triglycerides 37 Cholesterol 145 LDL Cholesterol, Calc 69 HDL Cholesterol 69 Urine Color Yellow Urine Appearance Cloudy Urine pH 7.0 Ur Specific [place] 1.010 Urine Protein Negative Urine Glucose (UA) Negative Urine Ketones Negative Urine Blood Small (1+) H Urine Nitrite Positive H Ur Leukocyte Esterase Large (3+) H Urine RBC 3-5 H Urine WBC 11-20 Ur Squamous Epith Cells 6-10 Urine Bacteria 4+ Hyaline Casts 0-2 Microbiology Microbiology Results: Microbiology 01/20/25 20:56 Urine Culture - Preliminary Urine clean catch - Clean Catch Midstream Culture too young to evaluate. Assessment and Plan (1) UTI (urinary tract infection): Status: Acute Assessment and Plan: 89 y/o woman admitted with: Dizziness likely secondary to high-grade intracranial arterial stenoses (MCA segments). Admit to hospitalist service. Telemetry. Continue treatment with aspirin and Plavix. Brain MRI in the morning. Neurology consult. Fall precautions (patient educated). Urinary tract infection. Continue ceftriaxone. Urine culture obtained -will follow results. Essential hypertension. Continue valsartan. Hyperlipidemia. Continue statin. ongoing need for dizziness secondary to high-grade intracranial arterial stenosis-monitor for dizziness, workup for dizziness including MRI and neuro evaluation pending. Quality Stroke Does the patient have a stroke diagnosis?: No VTE Prior VTE?: No VTE Risk Level:: Medical - moderate - high VTE Device Contraindication: N/A - Device Ordered VTE Drug Contraindication: N/A - Med Ordered
--- NOTE | 2025-01-21 18:37 | PC.NURSE ---
PT remains A&O X4 VSS NAD No complaints ambukates to BR with assist well.
--- NOTE | 2025-01-21 19:27 | MHC.EDTECH ---
This Pct assumed care of Patient at 1845 ,vitals taken ,Patient awake alert said she felt better ,Call beyer within Pt reach .
[2025-01-21] MEDS: Valsartan 320 MG TABLET PO (22:11)
[2025-01-21] MEDS: Atorvastatin Calcium 40 MG TABLET PO (22:12)
[2025-01-22] VITALS (8 sets, daily range): BP systolic 114–146; BP diastolic 60–74; PULSE 66–90; RESP 17–20; TEMP 36.1–36.3; O2SAT 94–96
[2025-01-22] MEDS: 0.9 % Sodium Chloride Flush 3 ML SYRINGE IVFLUSH (08:13)
[2025-01-22] MEDS: Clopidogrel Bisulfate 75 MG TABLET PO (08:13)
--- NOTE | 2025-01-22 11:36 | P.CNNE_ITS ---
History of Present Illness Data of Consult Service Date: 01/22/25 Primary Care Provider: Tomasa Catherine MD HPI Reason for consult: Dizziness 89 years old woman who came to hospital for dizziness. She said that it was triggered by bending or turning or head movement and was few sec of sense of motion without confusion or pain. She denied any new ear or eye symptoms. She has underlying hearing impairment. There was no recent cold or flu-like illness Review of Systems 2 Review of Systems: No chest pain shortness of breath or palpitation. No neck pain PMFSH Family History Family History Mother No problems noted. Father No problems noted. Social History Social History Household Members: Spouse Housing: Apartment Do you presently have visiting nurse or other home services: No Patient Tobacco Use Status: Never used Tobacco e-Cigarette/Vaping Use: Never Used service: No Current occupational status: retired Cognitive needs: No Hearing needs: Yes (bilateral hearing aids ) Vision needs: No Meds Allergies Allergy/AdvReac Type Severity Reaction Status Date / Time No Known Allergies Allergy Verified 01/20/25 15:07 Active Medications: Current Medications Acetaminophen (Acetaminophen 325 Mg Tablet) 650 mg PO Q6H PRN PRN Reason: Pain, Mild 1-3,fever,headache Aspirin (Aspirin Enteric Coated 81 Mg Tablet.) 81 mg PO BEDTIME [facility] Last Admin: 01/21/25 22:11 Dose: 81 mg Atorvastatin Calcium (Atorvastatin Calcium 40 Mg Tablet) 40 mg PO BEDTIME [facility] Last Admin: 01/21/25 22:12 Dose: 40 mg Calcium Carbonate (Calcium Carbonate 750 Mg Tab.Chew) 750 mg PO Q4H PRN PRN Reason: Heartburn Clopidogrel Bisulfate (Clopidogrel Bisulfate 75 Mg Tablet) 75 mg PO DAILY [facility] Last Admin: 01/22/25 08:13 Dose: 75 mg Magnesium Hydroxide (Milk Of Magnesia 30 Ml Oral.Susp) 30 ml PO DAILY PRN PRN Reason: Constipation Melatonin (Melatonin 3 Mg Tablet) 6 mg PO BEDTIME PRN PRN Reason: Insomnia Ondansetron HCl (Ondansetron Hcl 4 Mg/2 Ml Vial) 4 mg IVPUSH Q8H PRN PRN Reason: Nausea and Vomiting Sodium Chloride (0.9 % Sodium Chloride Flush 3 Ml Syringe) 3 ml IVFLUSH QSHIFT [facility] Last Admin: 01/22/25 08:13 Dose: 3 ml Valsartan (Valsartan 320 Mg Tablet) 320 mg PO BEDTIME [facility]; Protocol Last Admin: 01/21/25 22:11 Dose: 320 mg Home Medications ?Medication ?Instructions ?Recorded ?Confirmed ?Last Taken ?Type aspirin 81 mg tablet,delayed 81 mg PO BEDTIME 01/20/25 01/20/25 01/19/25 History release atorvastatin 40 mg tablet 40 mg PO BEDTIME 01/20/25 01/20/25 01/19/25 History valsartan 320 mg tablet 320 mg PO BEDTIME 01/20/25 01/20/25 01/19/25 History Physical Exam 2 Vital Signs: Vital Signs: Last Vital Signs Temp 97.2 F 01/22/25 07:51 Pulse 90 01/22/25 11:33 Resp 20 01/22/25 07:51 BP 114/60 01/22/25 11:33 Pulse Ox 94 01/22/25 07:51 O2 Del Method Room Air 01/22/25 07:51 BMI result Body Mass Index 20.8 Neuro: Other: She is alert and awake with normal spontaneity of speech fluency comprehension and affect. She has moderate hearing impairment. Visual saucedo are full. Face is symmetrical. There was no focal weakness. Plantars are flexor. Speech is normal. Results Labs 01/21/25 04:59 01/21/25 04:59 Labs: MRI of brain revealed mild diffuse atrophy and minimal microvascular ischemic changes. CTA revealed chronic left vertebral stenosis. Microbiology Microbiology Results: Microbiology 01/20/25 20:42 Blood - Venous Blood Culture - Preliminary No growth after 24 hours. 01/20/25 20:24 Blood - Venous Blood Culture - Preliminary No growth after 24 hours. 01/20/25 20:56 Urine clean catch - Clean Catch Midstream Urine Culture - Preliminary Culture too young to evaluate. Assessment and Plan (1) Vertebral artery stenosis: Qualifiers: Laterality: left Qualified Code(s): I65.02 - Occlusion and stenosis of left vertebral artery Status: Acute Likely asymptomatic. Mainstay of management is anti-platelet agent statin and blood pressure control. (2) Vertigo: Status: Acute Benign positional type of vertigo. Reassurance and education is needed. She should avoid activity that could put her at risk of falling. Procedures Date of Service Date of Service: 01/22/25
--- NOTE | 2025-01-22 13:39 | P.DS_ITS ---
DS: Providers Provider Date of Service: 01/22/25 Date of admission: 01/20/25 20:18 Date of discharge: 01/22/25 Primary care physician: Tomasa Catherine MD Consults: 01/20/25 22:28 Consult to Neurology Routine Consulting Provider: [place] Watson Reason for consultation: Dizziness, MCA stenosis Has provider been notified: Yes Attending physician on discharge: Adolfo Robertson Discharging clinician: Adolfo Robertson DS: Diagnosis Discharge Diagnosis (1) Vertebral artery stenosis: Status: Acute (2) Vertigo: Status: Acute DS: Summary Hospital Course Hospital Course: HPI:89 years old woman with past medical history significant for hypertension and hyperlipidemia presents to the emergency department complaining of dizziness (loss of balance, no spinning sensation) that started about 1 week ago. She stated that yesterday she fell down but had no significant traumas to her body or head. She has associated posterior headache 5/10 and without radiations. She also experienced some transitory visual disturbances. She denies nausea, vomiting, loss of consciousness, focal weakness (she reported mild chronic numbness to her left hand). She does not have weakness or paresthesia to her lower extremities. She denies history of strokes, diabetes mellitus or heart disease. She takes aspirin, losartan and atorvastatin daily. She denied tobacco smoking, alcohol abuse or illicit drug use. In the ED she was found to have stable vital signs. Last blood pressure 166/69. Blood workup showed no leukocytosis. Hemoglobin is 11.8 and platelets. There are no significant electrolyte imbalances. CO2 is 30. Renal and liver functions are normal. Urinalysis consistent with urinary tract infection. Head CT scan without contrast showed no acute intracranial process. Head and neck CTA showed age indeterminate intermittent occlusions throughout the left vertebral artery, high-grade intracranial arterial stenosis MCA and no large vessel obstruction. ECG showed normal sinus rhythm, heart rate 73 bpm. ED tx: NS 1000 ml bolus, ceftriaxone 1 g IV, Plavix 75 mg p.o., aspirin 325 mg p.o. Case has been discussed with Dr. Watson from neurologist service who recommended admission, MRI and start t x w/ Plavix. Hospital course: Patient was admitted for dizziness: Further workup MRI negative, CTA-possible vertebral artery stenosis, seen by Neurology-patient is seems some possible benign positional vertigo,Reassurance and education is needed. She should avoid activity that could put her at risk of falling. d/w nephrology:moniter orthostasis at home , encouraged for p.o. hydration and intake, orthostatic precautions, Piyush stocking added,continue [facility]( [phone])for that. Patient will be going home with VNA and PT. plan: Orthostasis precautions, monitor blood pressure-if stay labile or any new symptoms-consider going to ED. Reassurance and education is needed. She should avoid activity that could put her at risk of falling. consider outpatient vascular follow up for vertebral artery stenosis. Patient is going to home with VNA PT Above management discussed with the patient detail length she understand and in agreement with the above plan, time spent 40 minute. All question answered. Above was also conveyed to patient family. Time Attestation Total time managing care of this patient today: 40 mintues. Discharge Coordination Time (in mins): 40 min Quality: Safe Use of Opioids Does Pt have an Active Cancer Diagnosis on the Problem List?: No Quality: Stroke Does the patient have a stroke diagnosis?: No Physical Exam Vital Signs: Vital Signs: Last Vital Signs Temp 97.2 F 01/22/25 07:51 Pulse 82 01/22/25 11:47 Resp 20 01/22/25 11:47 BP 121/69 01/22/25 11:47 Pulse Ox 94 01/22/25 07:51 O2 Del Method Room Air 01/22/25 07:51 BMI result Body Mass Index 20.8 Appearance: Alert.? Oriented X3. cvs: rrr, [id number] . res: clear to auscultation ,no rhonchii or wheezing abd: no rebound or guarding ,nt, bs present. ext pulses present , no cyanosis . neuro: axo3 , nonfocal. DS: Data Data Completed and Pending Labs on day of discharge: Preliminary micro results at discharge 01/20/25 20:56 Urine Culture - Preliminary Urine clean catch - Clean Catch Midstream Gram negative kristen 01/20/25 20:42 Blood Culture - Preliminary Blood - Venous No growth after 24 hours. 01/20/25 20:24 Blood Culture - Preliminary Blood - Venous No growth after 24 hours. Imaging Chest x-ray: Radiologist's impression: ITS Impressions Head CT 05/28/25 15:06 IMPRESSION: No acute intracranial process seen. Cta: Age-indeterminate intermittent occlusions throughout the left vertebral artery. High-grade intracranial arterial stenoses detailed above. No large vessel occlusion. If clinical concern persists consider follow-up MRI. Additional findings described, please see above. mri: Impression: Chronic involutional volume loss No signs of acute infarction. Discharge Plan Discharge Anticipated Discharge Date/Time: 01/22/25 13:20 Patient Disposition: Home Health Service Discharge Diagnosis: vertebral art stenosis Referrals: Fran Olivera MD [Physician] - 2 Weeks Tomasa Catherine MD [Primary Care Provider] - 1 Week Discharge Medications: New clopidogrel 75 mg Tablet 75 mg PO DAILY Qty: 90 0RF cefuroxime axetil 250 mg Tablet 250 mg PO BID Qty: 14 0RF (DME) T.E.D. Knee [id number] Misc See Rx Instructions .Route Qty: 1 0RF Rx Instructions: As directed Continued atorvastatin 40 mg tablet 40 mg PO BEDTIME aspirin 81 mg Tablet,Delayed Release (Dr/Ec) 81 mg PO BEDTIME valsartan 320 mg Tablet 320 mg PO BEDTIME Discharge Orders: Discharge Order (Routine); Ordered 01/22/25 Ordered By: Adolfo Robertson Diet: Advance to usual diet Activity on Discharge: As tolerated Stand Alone Forms: Patient Portal Discharge page Print Language: Samoan Care Plan Goals: Patient was admitted for dizziness: Further workup MRI negative, CTA-possible vertebral artery stenosis, seen by Neurology-patient is seems some possible benign positional vertigo,Reassurance and education is needed. She should avoid activity that could put her at risk of falling. d/w nephrology:moniter orthostasis at home , encouraged for p.o. hydration and intake, Piyush dejesus added,continue vals[facility]( [phone])for that. Patient will be going home with VNA and PT. Health Concerns: as above. Plan of Treatment: Orthostasis precautions, monitor blood pressure-if stay labile or any new symptoms-consider going to ED. Reassurance and education is needed. She should avoid activity that could put her at risk of falling. consider outpatient vascular follow up for vertebral artery stenosis. Assessment: as above.
--- NOTE | 2025-01-22 14:09 | MHC.CM.PN ---
Pt has been medically cleared for DC, she will go home via family transport, and have home care services from [facility].
--- NOTE | 2025-01-22 14:22 | P.F2F_ITS ---
Service Date Service Date: 01/22/25 Encounter Date of encounter: 01/22/25 Encounter: Vertebral artery stenosis, orthostasis, vertigo. Reasons for Services Signs and symptoms assessed: Dizziness or new symptoms. Reason for longterm: CV/CP assess and/or care, medication management, medication treatment and teach disease management Reason for physical therapy: home safety and mobility, therapeutic exercises, restore joint function, gait/transfer training, assess need for DME, ADL training, energy conservation and other MD Overseeing Care: Tomasa Catherine Homebound: Leaving the home is medically contraindicated at this time without the asist of a device and/or another person due th the listed conditions above and below. Reason homebound: weakness related to hospital stay Homebound supporting statement: Patient is generalised weak post hospitlisation and need help with going to appointments and labs draws as well as PT. Certification: Based on the above findings, I certify that this patient is confined to the home and needs intermittent longterm care, physical therapy and/or speech therapy, or continues to need occupational therapy. The patient is under my care, and I have initiated the establishment of the plan of care. The patient will be followed by a physician who will periodically review the plan of care. Time Spent With Patient Time: Total time managing care of this patient today ____ minutes.
[2025-01-22] MEDS: cefuroxime axetiL 250 MG TABLET PO (14:53)
== END 2025-01-22 16:59 | disposition home health service (06) | DRG 68 ==
LOC: HO.ED 16:26 → HO.EDOVER 21:10 → HO.IMC 01-21 19:13
PROVIDERS: Emergency Medicine; Admitting Provider Internal Medicine; Emergency Provider Internal Medicine; PCP Internal Medicine; Visit Provider Internal Medicine
DX: I65.02 Occlusion and stenosis of left vertebral artery (principal); N39.0 Urinary tract infection, site not specified; R29.700 NIHSS score 0; I10 Essential (primary) hypertension; E78.5 Hyperlipidemia, unspecified; Z20.822 Contact with and (suspected) exposure to COVID-19; Z87.440 Personal history of urinary (tract) infections; Z79.82 Long term (current) use of aspirin; Z79.899 Other long term (current) drug therapy
CPT/HCPCS: 0241U; 36415; 70450; 70496; 70498; 70551; 80048; 80061; 80076; 81001; 82550; 83605; 83690; 83735; 84484; 85025; 87040; 87086; 87088; 87186; 93005; 97116; 97162; 97165; 97535; 99285; J0696; Q9967

== ENCOUNTER → 2025-01-20 15:06 | Outpatient (BNV) | payer MEDICARE, SELFPAY | PROVIDERS: Emergency Provider Internal Medicine; PCP Internal Medicine; Visit Provider Radiology Diagnostic Radiology | DX: I66.9 Occlusion and stenosis of unspecified cerebral artery (principal); R42 Dizziness and giddiness | CPT/HCPCS: 70450 ==

== ENCOUNTER → 2025-01-20 15:06 | Outpatient (BNV) | payer MEDICARE, SELFPAY | PROVIDERS: Admitting Provider Internal Medicine; Emergency Provider Internal Medicine; PCP Internal Medicine; Visit Provider Internal Medicine Cardiovascular Disease | DX: R94.31 Abnormal electrocardiogram [ECG] [EKG] (principal); R42 Dizziness and giddiness | CPT/HCPCS: 93010 ==

== ENCOUNTER 2025-01-20 20:18 | Outpatient (BNV) | payer MEDICARE, SELFPAY | END 2025-01-21 12:00 | PROVIDERS: Admitting Provider Internal Medicine; Emergency Provider Internal Medicine; PCP Internal Medicine; Visit Provider Radiology Diagnostic Radiology | DX: R42 Dizziness and giddiness (principal) | CPT/HCPCS: 70551 ==

== ENCOUNTER → 2025-01-20 20:18 | Outpatient (BNV) | payer MEDICARE, SELFPAY | PROVIDERS: Admitting Provider Internal Medicine; Emergency Provider Internal Medicine; PCP Internal Medicine; Visit Provider Internal Medicine | DX: I65.29 Occlusion and stenosis of unspecified carotid artery (principal); N30.00 Acute cystitis without hematuria; E78.5 Hyperlipidemia, unspecified; I10 Essential (primary) hypertension | CPT/HCPCS: 99223; 99232 ==

== ENCOUNTER → 2025-01-20 20:18 | Outpatient (BNV) | payer MEDICARE, SELFPAY | PROVIDERS: Admitting Provider Internal Medicine; Emergency Provider Internal Medicine; PCP Internal Medicine; Visit Provider Psychiatry & Neurology Neurology | DX: I65.02 Occlusion and stenosis of left vertebral artery (principal); R42 Dizziness and giddiness | CPT/HCPCS: 99222 ==

== ENCOUNTER 2025-01-29 09:37 | Outpatient (AMB) | payer MEDICARE, SELFPAY ==
--- NOTE | 2025-01-29 09:36 | A.OFFPC_ITS ---
Vital Signs 01/29/25 09:40 Height 5 ft Weight 111 lb BMI 21.7 BP 120/70 Blood Pressure Location Lt brachial Position Sitting Pulse 76 Pulse Source Pulse Oximeter Temp 97.1 F Temp Source Axillary Pulse Oximetry (%) 99 Oxygen Delivery Method Room Air Intake Visit Reasons: f/u, s/p hospital admission Printing Services Coordinator Required: No Accompanied by: Self / Same As Patient Allergies No Known Allergies Allergy (Verified 01/29/25 09:36) Tobacco use date assessed: 01/29/25 Fall risk assessment: 1 Fall in past year Last assessed Fall Risk: 01/29/25 Dental Screening Dental Screen Date: 01/29/25 Did you have a dental visit in the last 12 months?: Yes Did you have a dental problem in the last 6 months where you did not have access to dental care?: No HPI HPI Comments History of Present Illness Details Jeanna is an 89-year-old female with a past medical history of hypertension, hyperlipidemia, AVR, GERD, osoteoporosis presenting for follow up. Moved fro [place] a few years ago. Last annual with PCP was May 2024 Admitted 01/20-01/22/25. Presented to the emergency department complaining of dizziness (loss of balance, no spinning sensation) that started about 1 week ago. She stated that yesterday she fell down but had no significant traumas to her body or head. Patient was admitted for dizziness: Further workup MRI negative, CTA-possible vertebral artery stenosis, seen by Neurology-patient is seems some possible benign positional vertigo,Reassurance and education is needed. She should avoid activity that could put her at risk of falling. d/w nephrology:moniter orthostasis at home , encouraged for p.o. hydration and intake, orthostatic precautions, Piyush stocking added,continue [facility]( [phone])for that.Patient will be going home with VNA and PT. She tells me her vertigo has resolves. Urine symptoms are mostly resolved CV: Previously on htn, hld medications. ROS CONSTITUTIONAL: Denies weight loss, fever and chills. HEENT: Denies changes in vision and hearing. RESPIRATORY: Denies SOB and cough. CV: Denies palpitations and CP GI: Denies abdominal pain, nausea, vomiting and diarrhea. : Denies dysuria and urinary frequency. MSK: Denies new myalgia and joint pain. SKIN: Denies rash and pruritus. NEUROLOGICAL: Denies headache PSYCHIATRIC: Denies recent changes in mood. PHYSICAL EXAM: GENERAL: Alert and oriented x 3. NAD EYES: EOMI. Anicteric. HENT: Moist mucous membranes. No scleral icterus. No cervical lymphadenopathy. LUNGS: Clear to auscultation bilaterally. CARDIOVASCULAR: Regular rate and rhythm. No murmur. No JVD. ABDOMEN: Soft, non-tender +bs EXTREMITIES: No edema. Non-tender. SKIN: No rashes or lesions. Warm. NEUROLOGIC: No focal neurological deficits. CN II-XII grossly intact PSYCHIATRIC: Cooperative. Appropriate mood and affect [facility] Family History Mother No problems noted. Father No problems noted. Social History Household Members: Spouse Housing: Apartment Do you presently have visiting nurse or other home services: No Patient Tobacco Use Status: Never used Tobacco e-Cigarette/Vaping Use: Never Used service: No Current occupational status: retired Cognitive needs: Yes (cane) Hearing needs: Yes (bilateral hearing aids ) Vision needs: Yes (reading glasses) Questionnaire PHQ-9 Over the last 2 weeks, how often have you been bothered by any of the following problems? 1. Little interest or pleasure in doing things: not at all 2. Feeling down, depressed, or hopeless: not at all 3. Trouble falling or staying asleep, or sleeping too much: not at all 4. Feeling tired or having little energy: not at all 5. Poor appetite or overeating: not at all 6. Feeling bad about yourself - or that you are a failure or have let yourself or your family down: not at all 7. Trouble concentrating on things, such as reading the newspaper or watching television: not at all 8. Moving or speaking so slowly that other people could have noticed. Or the opposite - being so fidgety or restless that you have been moving around a lot more than usual: not at all 9. Thoughts that you would be better off or of hurting yourself in some way: not at all Total score: 0 Source: Developed by Drs. Frandy Sparks, Kaylan Locke, Greg Mcneill and colleagues, with an educational dick from [employer]. Thrive Questionnaire Date Thrive assessed: 01/29/25 I am a: Patient Within the past 12 months, did the food you bought not last and you didn't have the money to get more?: Never true Within the past 12 months, did you worry whether your food would run out before you got money to buy more?: Never true Do you have trouble paying for medicines?: No Do you have trouble getting transportation to medical appointments?: No Do you have trouble paying your heating and electricity bill?: No Do you have trouble taking care of your child, family member or friend?: No Do you have trouble with day-to-day activities such as bathing, preparing meals, shopping, managing finances, etc.?: No Are you currently unemployed and looking for a job?: No Are you interested in more education?: No THRIVE Score: 0 AUDIT C Alcohol Use Questionnaire (AUDIT-C) 1. How often do you have a drink containing alcohol?: Monthly or less 2. How many drinks containing alcohol do you have on a typical day when you are drinking?: 1 or 2 3. How often do you have six or more drinks on one occasion?: Less than monthly Total Score: 2 LYDIA-7 AMB Questionnaire LYDIA-7 Date LYDIA - 7 assessed: 01/29/25 Feeling nervous, anxious, or on edge: 0 = Not at all Not being able to stop or control worryin = Not at all Worrying too much about different things: 0 = Not at all Trouble relaxin = Not at all Being so restless that it is hard to sit still: 0 = Not at all Becoming easily annoyed or irritable: 0 = Not at all Feeling afraid as if something awful might happen: 0 = Not at all Total LYDIA-7 score (0-4 normal; 5-9 mild; 10-14 moderate; 15-21 severe): 0 Source: Developed by Drs. Frandy Sparks, Kaylan Locke, Greg Mcneill and colleagues, with an educational dick from [employer]. Physical exam (Primary Care) Vital Signs: Last Vital Signs Temp 97.1 F 01/29/25 09:40 Pulse 76 01/29/25 09:40 BP 120/70 01/29/25 09:40 Pulse Ox 99 01/29/25 09:40 Oxygen Delivery Method Room Air 01/29/25 09:40 BMI result Body Mass Index 21.7 Tobacco/Smoking Status: Tobacco use Status Tobacco use date assessed 01/29/25 01/29/25 09:38 Patient Tobacco Use Status Never used Tobacco 01/29/25 09:38 e-Cigarette/Vaping Use Never Used 01/29/25 09:38 PHQ-9: PHQ-9 Score PHQ-9: Total score 0 01/29/25 09:58 Thrive Assessment: Date of Thrive Assessment Date Thrive assessed 01/29/25 01/29/25 09:38 Coding Level of Care Code Est Pt Level 4 (69416) Diagnoses Hospital discharge follow-up Z09 Dysuria R30.0 Vertigo R42 Assessment & Plan Assessment & Plan (1) Hospital discharge follow-up: Code(s): Z09 - Encounter for follow-up examination after completed treatment for conditions other than malignant neoplasm Category: Medical (2) Dysuria: Code(s): R30.0 - Dysuria Category: Medical (3) Vertigo: Code(s): R42 - Dizziness and giddiness Category: Medical Plan 89 year old female presenting for hospital discharge hospital course labs reviewed Mild anemia after fluids Check urine for confirmation of UTI eradication Orders: Orders Urine Culture Today R30.0 - Dysuria UA and rflx microscopic Today R30.0 - Dysuria Complete Blood Count Auto Diff Today R30.0 - Dysuria, R42 - Dizziness and giddiness Vitamin B12 and Folate Today R30.0 - Dysuria, R42 - Dizziness and giddiness
[2025-01-29 09:40] VITALS: BP 120/70; PULSE 76; TEMP 36.2; O2SAT 99; BMI 21.7
--- OUTSIDE RECORDS SUMMARY | 2025-01-29 10:12 | XMS_ITS | Patient Health Record ---
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 Will continue Prolia as well. Problem Fibromyalgia (619499591) Fibromyalgia (M79.7) Active confirmed Continue pharmacological and non pharmacological measures. 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
== END 2025-01-29 11:24 | disposition home or self-care (01) ==
LOC: HO.HMCHD 09:37
PROVIDERS: PCP Internal Medicine; Visit Provider Internal Medicine
DX: Z09 Encounter for follow-up examination after completed treatment for conditions other than malignant neoplasm (principal); R30.0 Dysuria; R42 Dizziness and giddiness

== ENCOUNTER → 2025-01-29 09:37 | Outpatient (BNVA) | payer MEDICARE, SELFPAY | PROVIDERS: PCP Internal Medicine; Visit Provider Internal Medicine | DX: Z13.89 Encounter for screening for other disorder (principal) ==

== ENCOUNTER 2025-01-29 10:24 | Outpatient (REF) | payer MEDICARE, SELFPAY ==
[2025-01-29 12:59] LABS: MANUAL DIFF FLAG NO
[2025-01-29 13:01] LABS: Basophils Absolute Auto 0.1 X10*3/uL (0.0-0.2); Basophils Percent Auto 1.5 % (0-2); Eosinophils Absolute Auto 0.1 X10*3/uL (0.0-0.4); Eosinophils Percent Auto 3.1 % (0-4); Hematocrit 37.2 % (37.0-47.0); Hemoglobin 12.3 g/dl (12.0-16.0); Imm Gran Abs Auto 0.01 X10*3/uL (0.00-0.03); Imm Gran Pct Auto 0.2 % (0.0-0.4); Lymphocytes Absolute Auto 0.8 X10*3/uL (1.2-4.9); Lymphocytes Percent Auto 18.1 % (20-40); Mean Corpuscular HGB Conc 33.1 g/dl (31.0-35.0); Mean Corpuscular Hemoglobin 30.4 pg (27.0-33.0); Mean Corpuscular Volume 91.9 fL (80.0-98.0); Mean Platelet Volume 10.8 fL (9.4-12.3); Monocytes Absolute Auto 0.5 X10*3/uL (0.1-1.2); Monocytes Percent Auto 11.7 % (2-11); Neutrophils Percent Auto 65.4 % (45-73); Platelet Count 259 X10*3/uL (160-400); Red Blood Count 4.05 X10*6/uL (4.20-5.50); Red Cell Distribution Width 15.3 % (11.0-16.0); White Blood Count 4.5 X10*3/uL (4.8-10.8)
[2025-01-29 13:24] LABS: Appearance Urine Clear; Color Urine Yellow; Glucose Urine UA Negative (Negative); Leukocyte Esterase Urine Small (1+) (Negative); Nitrite Urine Negative (Negative); UMIC TRIGGER UA YES; Urine Blood Small (1+) (Negative); Urine Ketones Negative (Negative); Urine Protein Negative (Neg-Trace)
[2025-01-29 13:34] LABS: Bacteria Urine None Seen (None Seen); Hyaline Casts Urine 0-2 /LPF (0-2)
[2025-01-29 14:30] LABS: Vitamin B12 320 pg/mL (200-900)
== END 2025-01-29 10:25 | disposition home or self-care (01) ==
LOC: HO.10HDL 10:24
PROVIDERS: Visit Provider Internal Medicine
DX: Z09 Encounter for follow-up examination after completed treatment for conditions other than malignant neoplasm (principal); R30.0 Dysuria; R42 Dizziness and giddiness
CPT/HCPCS: 36415; 81001; 82607; 82746; 85025; 87086; 96127; 99212

== ENCOUNTER 2025-02-15 12:59 | Outpatient (AMB) | payer MEDICARE, SELFPAY ==
[2025-02-15 13:13] VITALS: BP 136/64; PULSE 77; O2SAT 98; BMI 21.3
--- NOTE | 2025-02-15 13:13 | HO.NEPHOV_ITS ---
Vital Signs 02/15/25 13:13 Height 5 ft Weight 109 lb BMI 21.3 BP 136/64 Blood Pressure Location Rt brachial Position Sitting Pulse 77 Pulse Source Pulse Oximeter Pulse Oximetry (%) 98 Oxygen Delivery Method Room Air Intake [place] [facility] [place] Cash Crop Farmer Required: No Accompanied by: Daughter Allergies No Known Allergies Allergy (Verified 02/15/25 13:16) Medication List - Last Reconciled 02/15/25 by Maged Sarmiento MD aspirin 81 mg PO BEDTIME atorvastatin 40 mg PO BEDTIME clopidogrel 75 mg PO DAILY marta.stocking,knee,reg,smal (T.E.D. Knee Abenhy-L-Edaomzv misc) As directed valsartan 320 mg PO BEDTIME HPI Comments Details: 89-year-old female presenting with recurrent urinary tract infections and urinary frequency. The urinary tract infections have been recurrent over the past two months, with two courses of antibiotics administered during this period. The infections have been associated with dizziness, which led to a fall and subsequent hospitalization. The patient reports urinary frequency, characterized by the need to urinate every hour, which disrupts her sleep. She denies any burning sensation or pain during urination. The frequency is more pronounced during the day, with nocturia occurring three to four times per night. The patient has a history of tibial artery stenosis, for which she was prescribed Plavix. She also has a history of scoliosis, which is significant upon standing. The patient experienced congestive heart failure approximately 10 to 15 years a go, from which she has since recovered. She is not currently on any diuretics. [facility] Family History Mother No problems noted. Father No problems noted. Social History Household Members: Spouse Housing: Apartment Do you presently have visiting nurse or other home services: No Patient Tobacco Use Status: Never used Tobacco e-Cigarette/Vaping Use: Never Used service: No Current occupational status: retired Cognitive needs: Yes (cane) Hearing needs: Yes (bilateral hearing aids ) Vision needs: Yes (reading glasses) Review of Systems Const Denies fever(s) and Denies weight loss Card Denies chest pain Resp Denies cough and Denies hemoptysis GI Denies abdominal pain, Denies diarrhea and Denies nausea Musc Denies back pain Neuro Denies focal weakness Physical Exam Vital Signs: Last Vital Signs Pulse 77 02/15/25 13:13 BP 136/64 02/15/25 13:13 Pulse Ox 98 02/15/25 13:13 Oxygen Delivery Method Room Air 02/15/25 13:13 BMI result Body Mass Index 21.3 Repeat BP 110/70 Sitting 100/60 Standing Comfortable Neck supple no JVD. Scoliosis + Lungs entry equal no rales. Heart S1-S2 heard no gallop or rub. Abdomen soft nontender. Neuro alert awake oriented. No asterixis. Extremities no edema. Results Reviewed Nephrology Results: Hgb, (12.0-16.0) 12.3 g/dl 01/29/25 WBC, (4.8-10.8) 4.5 X10*3/uL L 01/29/25 Plt Count, (160-400) 259 X10*3/uL 01/29/25 Sodium, (135-145) 138 mmol/L 01/21/25 Potassium, (3.3-5.1) 3.4 mmol/L Δ 01/21/25 Chloride, (96-108) 107 mmol/L 01/21/25 Carbon Dioxide, (22-29) 24 mmol/L 01/21/25 BUN, (9-16) 9 mg/dL 01/21/25 Creatinine, (0.5-1.4) 0.51 mg/dL 01/21/25 Calcium, (8.4-10.2) 8.3 mg/dL L Δ 01/21/25 Urine Protein, (Neg-Trace) Negative mg/dL 01/29/25 Assessment & Plan Assessment & Plan (1) UTI (urinary tract infection): Code(s): N39.0 - Urinary tract infection, site not specified Category: Medical Qualifiers: Hematuria presence: without hematuria Urinary tract infection type: acute cystitis Qualified Code(s): N30.00 - Acute cystitis without hematuria (2) Hypertension: Code(s): I10 - Essential (primary) hypertension Category: Medical Qualifiers: Hypertension type: primary hypertension Qualified Code(s): I10 - Essential (primary) hypertension Plan Schedule an ultrasound of the kidneys and bladder. - Repeat the urine culture as instructed. - Reduce valsartan dosage to 160 mg as directed Due to LOW BP - Continue drinking cranberry juice daily. - Follow up with your primary care physician unless further nephrology consultation is needed. Orders: Orders US renal BI Today I10 - Essential (primary) hypertension, N30.00 - Acute cystitis without hematuria Urine Culture Today N30.00 - Acute cystitis without hematuria Medications: Changed From valsartan 160 mg PO BEDTIME To valsartan 160 mg PO BEDTIME 90 tabs 1RF Coding Level of Care Code New Pt Level 4 (48991) Diagnoses Acute cystitis without hematuria N30.00 Hematuria presence: without hematuria Urinary tract infection type: acute cystitis Primary hypertension I10 Hypertension type: primary hypertension
--- OUTSIDE RECORDS SUMMARY | 2025-02-15 14:24 | XMS_ITS | Patient Health Record ---
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 Will continue Prolia as well. Problem Fibromyalgia (768977563) Fibromyalgia (M79.7) Active confirmed Continue pharmacological and non pharmacological measures. 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
== END 2025-02-15 13:37 | disposition home or self-care (01) ==
LOC: HO.HKA 13:00
PROVIDERS: PCP Internal Medicine; Visit Provider Internal Medicine Hypertension Specialist
DX: N30.00 Acute cystitis without hematuria (principal); I10 Essential (primary) hypertension
CPT/HCPCS: 99204

== ENCOUNTER → 2025-02-15 12:59 | Outpatient (BNVA) | payer MEDICARE, SELFPAY | PROVIDERS: PCP Internal Medicine; Visit Provider Internal Medicine Hypertension Specialist | DX: N30.00 Acute cystitis without hematuria (principal); I10 Essential (primary) hypertension | CPT/HCPCS: 99202 ==

== ENCOUNTER → 2025-03-09 23:59 | Outpatient (BNV) | payer MEDICARE, SELFPAY | PROVIDERS: PCP Internal Medicine; Visit Provider Internal Medicine | DX: I65.01 Occlusion and stenosis of right vertebral artery (principal); I10 Essential (primary) hypertension; R42 Dizziness and giddiness | CPT/HCPCS: G0180 ==

== ENCOUNTER 2025-04-06 14:16 | Outpatient (REF) | payer MEDICARE, SELFPAY ==
--- NOTE | ~2025-04-06 | US_ITS ---
CLINICAL HISTORY: I10 - Essential (primary) hypertension US retroperitoneum Comparison: None provided Findings: Right kidney normal size and echotexture, 9.4 cm length. Mild hydronephrosis. No calculus or focal lesion is seen. No abnormal vascular flow. Left kidney normal size and echotexture, 10.1 cm in length. No hydronephrosis, mass or calculus. Normal color flow. Small amount of low-level echoes within the urinary bladder, otherwise unremarkable bladder, no calculus or focal lesion is seen. Bilateral ureteral jets are not visualized. Impression: 1. Mild right hydronephrosis, uncertain etiology. 2. Small debris in the urinary bladder, non-specific. This document has been electronically signed by: Cande Tavarez MD on 04/07/2025 10:35:43
--- OUTSIDE RECORDS SUMMARY | 2025-04-06 15:11 | XMS_ITS | Patient Health Record ---
Author Organization [facility] Address [address] [facility] [address] [place], [place] [address] Care Team Providers Care Automotive Services Manager Name Role Phone gali joan Primary Care Provider Giuliana Barragan Unavailable [phone] Reason For Referral No Information Medications Medication SIG (Take, Route, Frequency, Duration) Notes Start Date End Date Status Cyclobenzaprine HCl 10 MG Tablet TAKE ONE TABLET BY MOUTH EVERY NIGHT AT BEDTIME; Duration: 90 Active Multivitamins Capsule as directed Orally qd Active Calcium + D 600-200 MG-UNIT Tablet 1 tablet with food Orally QOD Active NIFEdipine ER 30 MG Tablet Extended Release 24 Hour 1/2 tablet Orally Once a day Active Irbesartan 150 MG Tablet 2 tablets Oral at bedtime Active Spironolactone 25 MG Tablet Oral; Duration: 90 Active Prolia 60 MG/ML Solution as directed Subcutaneous 04/16/2016 Active Atorvastatin Calcium 40 MG Tablet 1 tablet Orally Once a day; Duration: 30 day(s) Active Carvedilol 12.5 MG Tablet 1 tablet with food Orally Twice a day Active Stool Softener 100 MG Capsule 1 capsule as needed Orally Once a day; Duration: 30 day(s) Active Aspir-81 81 MG Tablet Delayed Release 1 tablet Orally every other day Active Lasix 20 MG Tablet 1 tablet Orally Once a day PRN Active MiraLax - Packet 1 packet mixed with 8 ounces of fluid Orally Once a day Active PriLOSEC 20 MG Capsule Delayed Release 1 capsule Orally Once a day; Duration: 30 day(s) Active Immunizations Vaccine Route Administration Date Status Comme nts Flucelvax Unknown 06/11/2017 Administered Influenza Unknown 06/13/2015 Administered Pneumococcal Unknown 06/13/2015 Administered Pneumococcal IM Intramuscular 06/24/2017 Administered prevnar 13 Unknown 06/12/2015 Administered Social History Tobacco Use: Social History Observation Description Date Details (start date - stop date) Never Smoker NA - NA Social History Drugs/Alcohol: Social Info Question Answer Notes Alcohol Screen Did you have a drink containing alcohol in the past year? Yes How often did you have a drink containing alcohol in the past year? 4 or more times a week (4 points) How many drinks did you have on a typical day when you were drinking in the past year? 1 or 2 drinks (0 point) Points 4 Interpretation Positive Tobacco Use: Social Info Question Answer Notes Smoking: Are you a: nonsmoker Section Notes: 1 [...] Status Risk Notes Problem Low back pain (394668263) Low back pain (M54.5) Active confirmed Problem Age-related osteoporosis (028051544) Age-related osteoporosis without current pathological fracture (M81.0) Active confirmed Pt to continue calcium and vitamin D supplementation along with weight bearing exercises as tolerated. Will continue Prolia as well. Problem Fibromyalgia (043766478) Fibromyalgia (M79.7) Active confirmed Continue pharmacological and non pharmacological measures. 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
== END 2025-04-06 14:17 | disposition home or self-care (01) ==
LOC: HO.US 14:16
PROVIDERS: Visit Provider Psychiatry & Neurology Neurology
DX: I10 Essential (primary) hypertension (principal); N30.00 Acute cystitis without hematuria
CPT/HCPCS: 76775

== ENCOUNTER → 2025-04-06 14:21 | Outpatient (BNV) | payer MEDICARE, SELFPAY | PROVIDERS: Visit Provider Radiology Diagnostic Radiology | DX: I10 Essential (primary) hypertension (principal) | CPT/HCPCS: 76775 ==

== ENCOUNTER 2025-07-15 11:54 | Outpatient (REF) | payer MEDICARE, SELFPAY ==
[2025-07-15 14:09] LABS: Anion Gap 10 (12-20); Blood Urea Nitrogen 14 mg/dL (9-16); Calcium 9.0 mg/dL (8.4-10.2); Carbon Dioxide 28 mmol/L (22-29); Chloride 103 mmol/L (96-108); Estimated Glomerular Filt Rate > 60; Potassium 4.2 mmol/L (3.3-5.1); Sodium 137 mmol/L (135-145)
== END 2025-07-15 11:55 | disposition home or self-care (01) ==
LOC: HO.10HDL 11:54
PROVIDERS: Visit Provider Physician Assistant Medical
DX: Z00.00 Encounter for general adult medical examination without abnormal findings (principal); I10 Essential (primary) hypertension; R42 Dizziness and giddiness; R35.0 Frequency of micturition; N13.30 Unspecified hydronephrosis
CPT/HCPCS: 36415; 80051; 82306; 82310; 82565; 84443; 84520